=== PATIENT | male | born 1945 | race Two or more races ===

== ENCOUNTER 2016-06-24 10:35 | Emergency (ER) | payer MEDICARE, OTHER ==
--- NOTE | 2016-06-24 12:37 | ED ---
Lower Extremity Injury HPI - General Chief Complaint: Extremity Injury, Lower Stated Complaint: ankle pain Time Seen by Provider: 06/24/16 12:16 Source: patient Mode of arrival: ambulatory Limitations: no limitations - History of Present Illness Initial Comments: Patient is a 70-year-old male presenting with left ankle pain. Patient states Friday he was brushing off his truck when his foot got caught underneath the front tire. Patient slipped and fell catching himself. No head injury or loss of consciousness. Patient had immediate calf pain. She has been ambulatory on his injury. Pain is localized to the left Achilles tendon. Review of Systems ROS Statement: Those systems with pertinent positive or pertinent negative responses have been documented in the HPI. Constitutional: No fever and no chills. HENT: No congestion, no rhinorrhea and no sore throat. Eyes: No discharge and no redness. Respiratory: No cough and no shortness of breath. Cardiovascular: No chest pain and no palpitations. Gastrointestinal: No nausea, no vomiting, no abdominal pain and no diarrhea. Genitourinary: No dysuria and no hematuria. Musculoskeletal: + Ankle pain and swelling Skin: No pallor and no rash. Neurological: No dizziness and No headaches. ROS Other: All systems not noted in ROS Statement are negative. Past Medical History Past Medical History: No Reported History History of Any Multi-Drug Resistant Organisms: None Reported Past Surgical History: No Surgical Hx Reported Past Psychological History: No Psychological Hx Reported Smoking Status: Former smoker Past Alcohol Use History: None Reported Past Drug Use History: None Reported General Exam - General Exam Comments Initial Comments: Constitutional: Patient appears well-developed and well-nourished. No distress. Head: Normocephalic and atraumatic. Eyes: Conjunctivae and EOM are normal. Right eye exhibits no discharge. Left eye exhibits no discharge. No scleral icterus. Neck: Normal range of motion. Neck supple. Cardiovascular: Normal rate and regular rhythm. No murmur heard. Pulmonary/Chest: Effort normal and breath sounds normal. No respiratory distress. No wheezes. Abdominal: Soft. No distension. There is no tenderness. There is no rebound and no guarding. Musculoskeletal: Left ankle with significant bruising and swelling to posterior aspect of ankle. Loss of Achilles tendon landmarks. Positive Cornell's test on the left. Left ankle without tenderness to foot. Stable ankle. No calf tenderness. Distal pulses intact. Distal sensation intact. Motor intact. Neurological: Patient alert and oriented to person, place, and time. Skin: Skin is warm and dry. Not diaphoretic. Nursing notes and vitals reviewed. Limitations: no limitations Course Vital Signs 06/24/16 06/24/16 11:05 12:41 Temperature 97.2 F L 99.3 F Pulse Rate 91 71 Respiratory 20 18 Rate Blood Pressure 155/96 145/68 O2 Sat by Pulse 96 98 Oximetry - Reevaluation(s) Reevaluation #1: 06/24/16 13:23 Splint applied. Patient not requesting anything for pain. Procedures - Orthopedic Splinting/Casting Injury #1 Side: left Lower Extremity Injury Location: ankle Lower Extremity Immobilizer: posterior splint (Short leg with mild plantar flexion) Other Orthopedic Equipment: crutches Medical Decision Making - Medical Decision Making Patient's a 70-year-old male presenting with left ankle pain after injury on Friday. Concern for left Achilles tendon rupture. Patient was put in a mild plantar flexed short leg splint. Given crutches. Patient to follow up with orthopedic surgeon. Prior to discharge, patient was resting comfortably in bed. Course of stay improved. Denies pain. Discussed physical exam and diagnostic tests with patient. Questions answered and patient is agreeable to discharge with close follow up with orthopedic surgeon. Instructed to return to Emergency Department if symptoms worsen. Disposition Clinical Impression: Rupture of left Achilles tendon Disposition: HOME SELF-CARE Condition: Good Instructions: Achilles Tendon Rupture (ED) Referrals: None,Stated [Primary Care Provider] - 1-2 days Dereck Ponce MD [STAFF PHYSICIAN] - 1-2 days
[2016-06-24 12:42] VITALS: BP 145/68; PULSE 71; RESP 18; TEMP 99.3
--- NOTE | 2016-06-24 12:58 | XR ---
EXAMINATION TYPE: XR ankle complete LT DATE OF EXAM: 06/24/2016 12:38 PM CLINICAL HISTORY: Twisting fall injury with pain and swelling. TECHNIQUE: Frontal, lateral and oblique images of the left ankle are obtained. COMPARISON: None. FINDINGS: There is no acute fracture/dislocation evident in the left ankle. The ankle mortise appea rs within normal limits. There is mild to moderate soft tissue swelling over medial and lateral malle agatha. There is small to moderate-sized superior calcaneal spur. Vascular calcification in the soft tis candis is present. Subcutaneous edema fills Kager fat pad. There is prominent spurring from anterior avila perior tarsal navicular bone on lateral view. IMPRESSION: There is no acute fracture or dislocation in the left ankle.
== END 2016-06-24 13:44 | disposition home or self-care (01) ==
LOC: EC 10:35
DX: S86.012A Strain of left Achilles tendon, initial encounter (principal); Z87.891 Personal history of nicotine dependence; W23.0XXA Caught, crushed, jammed, or pinched between moving objects, initial encounter; Y93.89 Activity, other specified
CPT/HCPCS: 29515; 99283

== ENCOUNTER 2017-05-26 09:53 | Emergency (ER) | payer MEDICARE, OTHER ==
[2017-05-26 09:57] VITALS: TEMP 97.4
--- NOTE | 2017-05-26 10:39 | ED ---
Lower Extremity Injury HPI - General Chief Complaint: Extremity Injury, Lower Stated Complaint: knee pain Time Seen by Provider: 05/26/17 10:17 Source: patient, RN notes reviewed Mode of arrival: ambulatory Limitations: no limitations - History of Present Illness Initial Comments: This is a 71-year-old male with a history of a left Achilles tendon rupture in the past and left forearm fracture in the past no prior history of knee surgery or knee problems and he is aware of who states that he woke up this morning with left-sided knee pain. He states it was moderate pain now down to a 5 achy in nature. It got better with some movement. He states when he stands for more and 10 minutes or so he has to sit down because he starts hurting again. He denies any trauma back pain loss of function to the lower extremities. He denies any history of DVT. He states he just generally hurts without any specific spot MD Complaint: knee injury - Related Data Previous Rx's Medication Instructions Recorded Ketorolac [Toradol] 10 mg PO Q6HR #20 tab 05/26/17 Allergies Allergy/AdvReac Type Severity Reaction Status Date / Time ether AdvReac Confusion Verified 05/26/17 10:32 Review of Systems ROS Statement: Those systems with pertinent positive or pertinent negative responses have been documented in the HPI. ROS Other: All systems not noted in ROS Statement are negative. Past Medical History Past Medical History: No Reported History Additional Past Medical History / Comment(s): Left Achilles tendon rupture History of Any Multi-Drug Resistant Organisms: None Reported Past Surgical History: No Surgical Hx Reported Additional Past Surgical History / Comment(s): left forearm compound fracture surgical alignment and casting Past Anesthesia/Blood Transfusion Reactions: Postoperative Nausea & Vomiting ( PONV) Past Psychological History: No Psychological Hx Reported Smoking Status: Former smoker Past Alcohol Use History: None Reported Past Drug Use History: None Reported - Past Family History Mother Family Medical History: Coronary Artery Disease (CAD) Father Family Medical History: No Reported History General Exam - General Exam Comments Initial Comments: This is a well-developed well-nourished awake alert oriented 3 male Limitations: no limitations General appearance: alert, in no apparent distress Head exam: Present: atraumatic, normocephalic, normal inspection Eye exam: Present: normal appearance, PERRL, EOMI. Absent: scleral icterus, conjunctival injection, periorbital swelling ENT exam: Present: normal exam, mucous membranes moist Neck exam: Present: normal inspection. Absent: tenderness, meningismus, lymphadenopathy Respiratory exam: Absent: respiratory distress, wheezes, rales, rhonchi, stridor Cardiovascular Exam: Present: normal rhythm, bradycardia, normal heart sounds. Absent: systolic murmur, diastolic murmur, rubs, gallop, clicks GI/Abdominal exam: Present: normal bowel sounds. Absent: distended, tenderness , guarding, rebound, rigid, bruit, pulsatile mass Extremities exam: Present: normal inspection, full ROM, tenderness (Mild tenderness palpation of the medial and lateral aspects of the knee and over the patella no patellar ballottement. Mild tenderness over the patellar tendon. No evidence of defect. His tennis palpation of the popliteal fossa. Also there is calf tenderness on the left with some firmness compared to the right calf. No palpable cords.), normal capillary refill. Absent: pedal edema, joint swelling, calf tenderness Back exam: Present: normal inspection, full ROM. Absent: tenderness Neurological exam: Present: alert, oriented X3, CN II-XII intact Psychiatric exam: Present: normal affect, normal mood Skin exam: Present: warm, dry, intact, normal color. Absent: rash Course Vital Signs 05/26/17 05/26/17 09:54 11:51 Temperature 97.4 F L Pulse Rate 53 L 75 Respiratory 18 16 Rate Blood Pressure 130/73 118/58 O2 Sat by Pulse 97 98 Oximetry Medical Decision Making - Medical Decision Making I did discuss findings with the patient no acute findings she'll be discharged on appropriate anti-inflammatories is follow-up with his doctor and return when necessary he did likely twisted his knee and his sleep is not recall any trauma. - Radiology Data Radiology results: report reviewed (I did review the imaging and report no evidence of acute findings. Patient was notified), image reviewed Disposition Clinical Impression: Left knee pain Disposition: HOME SELF-CARE Condition: Good Instructions: Knee Pain (ED) Prescriptions: Ketorolac [Toradol] 10 mg PO Q6HR #20 tab Referrals: None,Stated [Primary Care Provider] - 1-2 days
[2017-05-26] MEDS ORDERED: IBUPROFEN 800 MG TAB PO STA (11:26)
--- NOTE | 2017-05-26 11:42 | XR ---
EXAMINATION TYPE: XR knee complete LT DATE OF EXAM: 05/26/2017 COMPARISON: NONE HISTORY: Pain TECHNIQUE: Four views are submitted. FINDINGS: Joint spaces are preserved. Osseous structures are intact. No acute fracture seen. Hypertrophic ch anges are noted. There is diffuse osteopenia. Vascular calcification seen. IMPRESSION: 1. No acute fracture or dislocation.
--- NOTE | 2017-05-26 11:45 | US ---
EXAMINATION TYPE: US venous doppler duplex LE LT DATE OF EXAM: 05/26/2017 11:01 AM COMPARISON: NONE CLINICAL HISTORY: 71-year-old male Pain. Left knee pain SIDE PERFORMED: Left TECHNIQUE: The lower extremity deep venous system is examined utilizing real time linear array sonog raegan with graded compression, doppler sonography and color-flow sonography. FINDINGS: VESSELS IMAGED: External Iliac Vein (EIV) Common Femoral Vein Deep Femoral Vein Greater Saphenous Vein * Femoral Vein Popliteal Vein Small Saphenous Vein * Proximal Calf Veins (* superficial vessels) Left Leg: Negative for DVT IMPRESSION: No evidence for DVT within the left lower extremity imaged from the groin to the upper calf.
[2017-05-26 11:53] VITALS: BP 118/58; PULSE 75; RESP 16
== END 2017-05-26 12:20 | disposition home or self-care (01) ==
LOC: EC 09:53
DX: M25.562 Pain in left knee (principal); R00.1 Bradycardia, unspecified; Z87.891 Personal history of nicotine dependence; Z91.048 Other nonmedicinal substance allergy status
CPT/HCPCS: 99284

== ENCOUNTER → 2020-09-11 | Outpatient (CLI) | payer MEDICARE ==
--- NOTE | 2020-09-11 11:35 | US ---
EXAMINATION TYPE: US prostate transrectal DATE OF EXAM: 09/11/2020 COMPARISON: NONE CLINICAL HISTORY: R97.2 ELEVATED PSA. elevated PSA. urinary urgency This examination was performed using the transrectal probe. EXAM MEASUREMENTS: Gland Size: 5.2 x 4.0 x 5.3cm Volume: 58.1ml Predicted PSA: 6.97 Actual PSA (if available): 4.6 Visualized seminal vesicles within normal limits on initial images saved. Heterogeneous enlarged pros joyner gland with central calcifications. No suspicious hypoechoic nodules. IMPRESSION: Findings consistent with BPH. No suspicious nodules. Predicted PSA = volume x 0.12 ng/ml Calculated Volume = 0.5236 x L x W x H
== END | disposition home or self-care (01) ==
LOC: RADUSWWP 10:25
PROVIDERS: ATTEND Family Medicine
DX: R97.20 Elevated prostate specific antigen [PSA] (principal)
CPT/HCPCS: 76872

== ENCOUNTER 2020-12-08 13:29 | Inpatient (IN) | payer MEDICARE, OTHER ==
--- NOTE | 2020-12-08 14:21 | ED ---
General Adult HPI - General Source: patient, RN notes reviewed, old records reviewed Mode of arrival: EMS Limitations: no limitations <Jacinto Trujillo - Last Filed: 12/08/20 14:26> <Mirna Dotson - Last Filed: 12/09/20 14:16> - General Chief complaint: Weakness Stated complaint: Weakness Time Seen by Provider: 12/08/20 13:55 - History of Present Illness Initial comments: This is a 75-year-old male who presents emergency department because he stating that he has generalized weakness. Patient states some days she's better than others but is slowly been getting worse ever since the patient on started. Patient states he has been unable to get up and get around to [place] because he has been staying in his apartment and he hasn't been getting out for about a year and a half. Patient states he is becoming more off balance and about a week ago he fell he did not hurt anything but he notices that he has to grab onto things much more often because is afraid is in the fall. Patient states the weakness is not focal it's more generalized occasionally he feels one side is weaker than the other but that changes almost daily. Patient denies any recent injury. Patient denies any headache patient denies numbness weakness per patient denies any recent fever chills or cough per patient denies difficulty breathing or shortness of breath per patient denies chest pain. Patient denies any abdominal pain patient denies any nausea vomiting diarrhea. Sister is in the room and she agrees that since the patient and it began and he stayed in his apartment he has become weaker and weaker. (Jacinto Trujillo) - Related Data Home Medications Medication Instructions Recorded Confirmed Ergocalciferol [Vitamin D2 (1250 1,250 mcg PO WE 12/08/20 12/08/20 Mcg = 01379 Iu)] Meloxicam [Mobic] 15 mg PO DAILY 12/08/20 12/08/20 Allergies Allergy/AdvReac Type Severity Reaction Status Date / Time ether AdvReac Confusion Verified 12/08/20 16:51 Review of Systems ROS Other: All systems not noted in ROS Statement are negative. <Jacinto Trujillo - Last Filed: 12/08/20 14:26> ROS Other: All systems not noted in ROS Statement are negative. <Mirna Dotson - Last Filed: 12/09/20 14:16> ROS Statement: Those systems with pertinent positive or pertinent negative responses have been documented in the HPI. Past Medical History Past Medical History: No Reported History Additional Past Medical History / Comment(s): Left Achilles tendon rupture History of Any Multi-Drug Resistant Organisms: None Reported Past Surgical History: No Surgical Hx Reported Additional Past Surgical History / Comment(s): left forearm compound fracture surgical alignment and casting Past Anesthesia/Blood Transfusion Reactions: Postoperative Nausea & Vomiting (PONV) Past Psychological History: No Psychological Hx Reported Past Alcohol Use History: None Reported Past Drug Use History: None Reported - Past Family History Mother Family Medical History: Coronary Artery Disease (CAD) Father Family Medical History: No Reported History <Jacinto Trujillo - Last Filed: 12/08/20 14:26> General Exam Limitations: no limitations <Jacinto Trujillo - Last Filed: 12/08/20 14:26> - General Exam Comments Initial Comments: GENERAL: Patient is well-developed and well-nourished. Patient is nontoxic and well- hydrated and is in no acute distress. ENT: Neck is soft and supple. No significant lymphadenopathy is noted. Oropharynx is clear. Moist mucous membranes. Neck has full range of motion without eliciting any pain. EYES: The sclera were anicteric and conjunctiva were pink and moist. Extraocular movements were intact and pupils were equal round and reactive to light. Eyelids were unremarkable. PULMONARY: Unlabored respirations. Good breath sounds bilaterally. No audible rales rhonchi or wheezing was noted. CARDIOVASCULAR: There is a regular rate and rhythm without any murmurs gallops or rubs. ABDOMEN: Soft and nontender with normal bowel sounds. SKIN: Skin is clear with no lesions or rashes and otherwise unremarkable. NEUROLOGIC: Patient is alert and oriented x3. Cranial nerves II through XII are grossly intact. Motor and sensory are also intact. Normal speech, volume and content. Symmetrical smile. MUSCULOSKELETAL: Normal extremities with adequate strength and full range of motion. No lower extremity swelling or edema. No calf tenderness. LYMPHATICS: No significant lymphadenopathy is noted PSYCHIATRIC: Normal psychiatric evaluation. (Jacinto Trujillo) Course Vital Signs 12/08/20 12/08/20 12/08/20 13:53 13:58 20:17 Temperature 97.6 F 97.9 F Pulse Rate 59 L 64 Pulse Rate [ 60 Bilateral Radial] Respiratory 18 18 Rate Blood Pressure 117/69 109/72 O2 Sat by Pulse 94 L 95 Oximetry Medical Decision Making <Jacinto Trujillo - Last Filed: 12/08/20 14:26> - Lab Data Result diagrams: 12/09/20 06:56 12/09/20 06:56 <Mirna Dotson - Last Filed: 12/09/20 14:16> - Medical Decision Making EKG shows normal sinus rhythm at 62 bpm DC interval is 206 QRS is 66 QT interval 370 QTC is 383. Patient's EKG shows no ST segment elevation or depression. Dr. Dotson will be taking over the care of this patient at 3 PM (Jacinto Trujillo) The patient was signed out to me from Dr. Trujillo. Currently awaiting labs studies and imaging. Laboratory studies are within normal limits. Urinalysis demonstrates 69 white blood cells and small leukocyte esterase. Chest x-ray demonstrates no acute process. I spoke with the patient and the sister at bedside. They feel uncomfortable with the patient going home due to his multiple falls concern for safety. [place] the patient needs rehab. Dr. Gonzalez was paged x 3 for admission. Campaign Manager states that she verified that Dr. 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 Currently awaiting callback. (Mirna Dotson) - Lab Data Lab Results 12/08/20 12/08/20 12/08/20 Range/Units 14:18 14:44 14:44 WBC 10.5 (3.8-10.6) k/uL RBC 4.26 L (4.30-5.90) m/uL Hgb 14.6 (13.0-17.5) gm/dL Hct 40.9 (39.0-53.0) % MCV 95.9 (80.0-100.0) fL MCH 34.3 (25.0-35.0) pg MCHC 35.8 (31.0-37.0) g/dL RDW 13.8 (11.5-15.5) % Plt Count 230 (150-450) k/uL MPV 7.9 Neutrophils % 77 % Lymphocytes % 12 % Monocytes % 8 % Eosinophils % 1 % Basophils % 0 % Neutrophils # 8.1 H (1.3-7.7) k/uL Lymphocytes # 1.3 (1.0-4.8) k/uL Monocytes # 0.8 (0-1.0) k/uL Eosinophils # 0.1 (0-0.7) k/uL Basophils # 0.0 (0-0.2) k/uL PT (9.0-12.0) sec INR (<1.2) APTT (22.0-30.0) sec Sodium (137-145) mmol/L Potassium (3.5-5.1) mmol/L Chloride (98-107) mmol/L Carbon Dioxide (22-30) mmol/L Anion Gap mmol/L BUN (9-20) mg/dL Creatinine (0.66-1.25) mg/dL Est GFR (CKD-EPI)AfAm (>60 ml/min/1.73 sqM) Est GFR (CKD-EPI)NonAf (>60 ml/min/1.73 sqM) Glucose (74-99) mg/dL Plasma Lactic Acid Ascencion (0.7-2.0) mmol/L Calcium (8.4-10.2) mg/dL Magnesium (1.6-2.3) mg/dL Total Bilirubin (0.2-1.3) mg/dL AST (17-59) U/L ALT (4-49) U/L Alkaline Phosphatase (38-126) U/L Troponin I (0.000-0.034) ng/mL Total Protein (6.3-8.2) g/dL Albumin (3.5-5.0) g/dL Urine Color Yellow Urine Appearance Cloudy (Clear) Urine pH 6.0 (5.0-8.0) Ur Specific [place] 1.022 (1.001-1.035) Urine Protein Negative (Negative) Urine Glucose (UA) Negative (Negative) Urine Ketones Trace H (Negative) Urine Blood Negative (Negative) Urine Nitrite Negative (Negative) Urine Bilirubin Negative (Negative) Urine Urobilinogen 12.0 (<2.0) mg/dL Ur Leukocyte Esterase Small H (Negative) Urine RBC 3 (0-5) /hpf Urine WBC 69 H (0-5) /hpf 12/08/20 12/08/20 12/08/20 Range/Units 14:44 14:44 14:44 WBC (3.8-10.6) k/uL RBC (4.30-5.90) m/uL Hgb (13.0-17.5) gm/dL Hct (39.0-53.0) % MCV (80.0-100.0) fL MCH (25.0-35.0) pg MCHC (31.0-37.0) g/dL RDW (11.5-15.5) % Plt Count (150-450) k/uL MPV Neutrophils % % Lymphocytes % % Monocytes % % Eosinophils % % Basophils % % Neutrophils # (1.3-7.7) k/uL Lymphocytes # (1.0-4.8) k/uL Monocytes # (0-1.0) k/uL Eosinophils # (0-0.7) k/uL Basophils # (0-0.2) k/uL PT (9.0-12.0) sec INR (<1.2) APTT (22.0-30.0) sec Sodium 140 (137-145) mmol/L Potassium 4.3 (3.5-5.1) mmol/L Chloride 107 (98-107) mmol/L Carbon Dioxide 25 (22-30) mmol/L Anion Gap 8 mmol/L BUN 24 H (9-20) mg/dL Creatinine 0.79 (0.66-1.25) mg/dL Est GFR (CKD-EPI)AfAm >90 (>60 ml/min/1.73 sqM) Est GFR (CKD-EPI)NonAf 88 (>60 ml/min/1.73 sqM) Glucose 105 H (74-99) mg/dL Plasma Lactic Acid Ascencion 0.8 (0.7-2.0) mmol/L Calcium 9.7 (8.4-10.2) mg/dL Magnesium 2.3 (1.6-2.3) mg/dL Total Bilirubin 0.9 (0.2-1.3) mg/dL AST 19 (17-59) U/L ALT 17 (4-49) U/L Alkaline Phosphatase 70 (38-126) U/L Troponin I <0.012 (0.000-0.034) ng/mL Total Protein 6.9 (6.3-8.2) g/dL Albumin 4.1 (3.5-5.0) g/dL Urine Color Urine Appearance (Clear) Urine pH (5.0-8.0) Ur Specific [place] (1.001-1.035) Urine Protein (Negative) Urine Glucose (UA) (Negative) Urine Ketones (Negative) Urine Blood (Negative) Urine Nitrite (Negative) Urine Bilirubin (Negative) Urine Urobilinogen (<2.0) mg/dL Ur Leukocyte Esterase (Negative) Urine RBC (0-5) /hpf Urine WBC (0-5) /hpf 12/08/20 Range/Units 15:40 WBC (3.8-10.6) k/uL RBC (4.30-5.90) m/uL Hgb (13.0-17.5) gm/dL Hct (39.0-53.0) % MCV (80.0-100.0) fL MCH (25.0-35.0) pg MCHC (31.0-37.0) g/dL RDW (11.5-15.5) % Plt Count (150-450) k/uL MPV Neutrophils % % Lymphocytes % % Monocytes % % Eosinophils % % Basophils % % Neutrophils # (1.3-7.7) k/uL Lymphocytes # (1.0-4.8) k/uL Monocytes # (0-1.0) k/uL Eosinophils # (0-0.7) k/uL Basophils # (0-0.2) k/uL PT 10.0 (9.0-12.0) sec INR 0.9 (<1.2) APTT 20.2 L (22.0-30.0) sec Sodium (137-145) mmol/L Potassium (3.5-5.1) mmol/L Chloride (98-107) mmol/L Carbon Dioxide (22-30) mmol/L Anion Gap mmol/L BUN (9-20) mg/dL Creatinine (0.66-1.25) mg/dL Est GFR (CKD-EPI)AfAm (>60 ml/min/1.73 sqM) Est GFR (CKD-EPI)NonAf (>60 ml/min/1.73 sqM) Glucose (74-99) mg/dL Plasma Lactic Acid Ascencion (0.7-2.0) mmol/L Calcium (8.4-10.2) mg/dL Magnesium (1.6-2.3) mg/dL Total Bilirubin (0.2-1.3) mg/dL AST (17-59) U/L ALT (4-49) U/L Alkaline Phosphatase (38-126) U/L Troponin I (0.000-0.034) ng/mL Total Protein (6.3-8.2) g/dL Albumin (3.5-5.0) g/dL Urine Color Urine Appearance (Clear) Urine pH (5.0-8.0) Ur Specific [place] (1.001-1.035) Urine Protein (Negative) Urine Glucose (UA) (Negative) Urine Ketones (Negative) Urine Blood (Negative) Urine Nitrite (Negative) Urine Bilirubin (Negative) Urine Urobilinogen (<2.0) mg/dL Ur Leukocyte Esterase (Negative) Urine RBC (0-5) /hpf Urine WBC (0-5) /hpf Disposition <Jacinto Trujillo - Last Filed: 12/08/20 14:26> Is patient prescribed a controlled substance at d/c from ED?: No Decision to Admit Reason: Admit from EC Decision Date: 12/08/20 Decision Time: 17:25 <Mirna Dotson - Last Filed: 12/09/20 14:16> Clinical Impression: Generalized weakness, Multiple falls Disposition: ADMITTED IP TO THIS [facility] Condition: Stable
[2020-12-08 15:16] LABS: ALT 17 U/L (4-49); AST 19 U/L (17-59); African American GFR (CKD) >90 (>60 ml/min/1.73 sqM); Albumin 4.1 g/dL (3.5-5.0); Alkaline Phosphatase 70 U/L (38-126); Anion Gap 8 mmol/L; Blood Urea Nitrogen 24 mg/dL (9-20); Calcium 9.7 mg/dL (8.4-10.2); Carbon Dioxide 25 mmol/L (22-30); Chloride 107 mmol/L (98-107); Glucose 105 mg/dL (74-99); Magnesium 2.3 mg/dL (1.6-2.3); Non-African American GFR(CKD) 88 (>60 ml/min/1.73 sqM); Potassium 4.3 mmol/L (3.5-5.1); Sodium 140 mmol/L (137-145); Total Bilirubin 0.9 mg/dL (0.2-1.3); Total Protein 6.9 g/dL (6.3-8.2)
[2020-12-08 15:46] LABS: Basophils % (A) 0 %; Eosinophils # (A) 0.1 k/uL (0-0.7); Eosinophils % (A) 1 %; HCT 40.9 % (39.0-53.0); HGB 14.6 gm/dL (13.0-17.5); Lymphocytes # (A) 1.3 k/uL (1.0-4.8); Lymphocytes % (A) 12 %; MCH 34.3 pg (25.0-35.0); MCHC 35.8 g/dL (31.0-37.0); MCV 95.9 fL (80.0-100.0); Mean Platelet Volume 7.9; Monocytes # (A) 0.8 k/uL (0-1.0); Monocytes % (A) 8 %; Neutrophils # (A) 8.1 k/uL (1.3-7.7); Neutrophils % (A) 77 %; Platelet Count 230 k/uL (150-450); RBC 4.26 m/uL (4.30-5.90); RDW 13.8 % (11.5-15.5); WBC 10.5 k/uL (3.8-10.6)
[2020-12-08 16:07] LABS: Appearance,Urine Cloudy (Clear); Bilirubin,Urine Negative (Negative); Blood,Urine Negative (Negative); Color,Urine Yellow; Glucose,Urine (UA) Negative (Negative); Ketones,Urine Trace (Negative); Leukocyte Esterase,Urine Small (Negative); Nitrite,Urine Negative (Negative); Protein,Urine Negative (Negative); RBC,Urine 3 /hpf (0-5); Specific Gravity,Urine 1.022 (1.001-1.035); WBC,Urine 69 /hpf (0-5)
--- NOTE | 2020-12-08 16:16 | XR ---
EXAMINATION TYPE: XR chest 2V DATE OF EXAM: 12/08/2020 COMPARISON: NONE HISTORY: Shortness of breath TECHNIQUE: Frontal and lateral views of the chest are obtained. FINDINGS: Scattered senescent parenchymal changes noted. Hyperinflation compatible with COPD. No evidence for infiltrate. No evidence for atelectasis. Heart size is stable. Mediastinal structures are stable and grossly unremarkable. No evidence for hilar prominence. Degenerative changes dorsal spine. IMPRESSION: 1. No evidence for acute pulmonary disease.
[2020-12-08 16:21] LABS: INR 0.9 (<1.2)
[2020-12-08 16:33] LABS: Partial Thromboplastin Time 20.2 sec (22.0-30.0)
[2020-12-08] MEDS ORDERED: NALOXONE 0.4 MG/ML 1 ML VIAL IV PRN (17:25)
[2020-12-08] MEDS: SODIUM CHLORIDE 0.9% 1,000 ML IV SCH (19:38)
[2020-12-09 07:36] LABS: Basophils % (A) 0 %; Eosinophils # (A) 0.1 k/uL (0-0.7); Eosinophils % (A) 1 %; HCT 39.9 % (39.0-53.0); HGB 13.3 gm/dL (13.0-17.5); Lymphocytes # (A) 1.2 k/uL (1.0-4.8); Lymphocytes % (A) 13 %; MCH 32.1 pg (25.0-35.0); MCHC 33.3 g/dL (31.0-37.0); MCV 96.6 fL (80.0-100.0); Mean Platelet Volume 7.1; Monocytes # (A) 0.5 k/uL (0-1.0); Monocytes % (A) 6 %; Neutrophils # (A) 7.2 k/uL (1.3-7.7); Neutrophils % (A) 78 %; Platelet Count 255 k/uL (150-450); RBC 4.13 m/uL (4.30-5.90); RDW 13.5 % (11.5-15.5); WBC 9.3 k/uL (3.8-10.6)
[2020-12-09 07:38] LABS: Glucose,Whole Blood 147 mg/dL (75-99)
[2020-12-09] MEDS: SODIUM CHLORIDE 0.9% 1,000 ML IV SCH ×2 (07:46→20:51)
[2020-12-09] MEDS: MELOXICAM 7.5 MG TAB PO SCH (07:47)
[2020-12-09 11:30] LABS: Glucose,Whole Blood 83 mg/dL (75-99)
[2020-12-09 12:04] LABS: African American GFR (CKD) 101.3 (60.0-200.0); Anion Gap 4.2 mmol/L (4.00-12.00); BUN/Creat Ratio 23.75 Ratio (12.00-20.00); Carbon Dioxide 26.8 mmol/L (21.6-31.8); Non-African American GFR(CKD) 87.4 (60.0-200.0); Potassium 4.2 mmol/L (3.5-5.5)
[2020-12-09] MEDS ORDERED: TAMSULOSIN 0.4 MG CAP.ER.24H PO SCH (18:30)
--- NOTE | 2020-12-09 18:32 | P.HPIM ---
History of Present Illness H&P Date: 12/09/20 Chief Complaint: Difficulty ambulating, falls or weakness bilateral legs with imbalance Is a 75-year-old gentleman patient of Dr. Magaña, with no significant medical history, except for BPH. Patient has complained of falls, patient lives alone, patient has difficulty in his balance, he has fallen down 3 times within the past 6 months, he was not diagnosed to have Parkinson's disease, or dementia, however he has difficulty with performing tasks at home, requires a walker for community ambulation. Patient has had chronic back pain ever since he was a child, there was no surgical recommendation for this one, and patient is suffered through it. Patient is not on any opiates prior to admission, Emergency room, labs look okay except for chloride that is 110 INR 0.9, blood sugar between 83-147, hemoglobin 13.3, creatinine of 0.8, urinalysis shows 69 WBC, the emergency room has not notified me of these reports. In the nursing floor, patient has urinary retention of approximately 400, Flomax was started today. Repeat PVR and renal ultrasound. Patient has urgency, and urine frequency. PT OT has been consulted, we've discussed this with the patient for imaging of the low back for an MRI, to rule out spinal stenosis, patient is in agreement for this Review of Systems Constitutional: Reports as per HPI, Denies anorexia, Denies chills, Denies chronic headaches, Denies chronic pain, Denies daytime sleepiness, Denies fatigue, Denies fever, Denies lethargy, Denies malaise, Denies night sweats, Denies poor appetite, Denies sweats, Denies weakness, Denies weight gain, Denies weight loss Ears, nose, mouth and throat: Reports as per HPI Cardiovascular: Reports as per HPI Respiratory: Reports as per HPI Gastrointestinal: Reports as per HPI Genitourinary: Reports as per HPI, Denies decreased libido, Denies difficulties fathering child, Denies discharge, Denies dysuria, Denies erectile dysfunction, Denies flank pain, Denies genital pain, Denies genital sores, Denies hematuria, Denies impotence, Denies incontinence, Denies kidney stones, Denies nocturia, Denies polyuria, Denies testicular lump, Denies testicular pain, Denies urinary frequency, Denies urinary hesitancy, Denies urinary retention Musculoskeletal: Reports as per HPI, Reports gait dysfunction, Reports limitation of motion, Reports low back pain Neurological: Reports as per HPI, Reports motor disturbance, Reports paresthesias Psychiatric: Reports as per HPI Endocrine: Reports as per HPI Hematologic/Lymphatic: Reports as per HPI Allergic/Immunologic: Reports as per HPI Past Medical History Past Medical History: Prostate Disorder Additional Past Medical History / Comment(s): Left Achilles tendon rupture 6-7 years ago. bph History of Any Multi-Drug Resistant Organisms: None Reported Past Surgical History: Hernia Repair, Tonsillectomy Additional Past Surgical History / Comment(s): left forearm compound fracture surgical alignment and casting Past Anesthesia/Blood Transfusion Reactions: Postoperative Nausea & Vomiting (PONV) Past Psychological History: No Psychological Hx Reported Smoking Status: Former smoker Past Alcohol Use History: None Reported Past Drug Use History: None Reported - Past Family History Mother Family Medical History: No Reported History, Coronary Artery Disease (CAD) Father Family Medical History: No Reported History Medications and Allergies Home Medications Medication Instructions Recorded Confirmed Type Ergocalciferol [Vitamin D2 (1250 1,250 mcg PO WE 12/08/20 12/08/20 History Mcg = 34168 Iu)] Meloxicam [Mobic] 15 mg PO DAILY 12/08/20 12/08/20 History Allergies Allergy/AdvReac Type Severity Reaction Status Date / Time ether AdvReac Confusion Verified 12/08/20 16:51 Physical Exam Vitals: Vital Signs Temp Pulse Pulse Pulse Resp BP BP 12/09/20 04:35 97.4 F L 59 L 20 115/66 12/08/20 21:45 97.5 F L 65 20 101/61 12/08/20 20:17 97.9 F 64 18 109/72 12/08/20 13:58 60 12/08/20 13:53 97.6 F 59 L 18 117/69 Pulse Ox 12/09/20 04:35 95 12/08/20 21:45 96 12/08/20 20:17 95 12/08/20 13:58 12/08/20 13:53 94 L Intake and Output 12/08/20 12/09/20 12/09/20 22:59 06:59 14:59 Intake Total 200 Output Total 750 Balance -550 Intake: Oral 200 Output: Urine 750 Straight 550 Other: Voiding Method Urinal # Voids 5 Weight 90.5 kg - Constitutional General appearance: cooperative, morbidly obese - EENT Eyes: EOMI, PERRLA, dentition normal, normal appearance ENT: NA/AT, normal oropharynx - Neck Neck: normal ROM - Respiratory Respiratory: bilateral: CTA, negative: diminished, dullness - Cardiovascular Rhythm: regular Heart sounds: normal: S1, S2 Abnormal Heart Sounds: no systolic murmur, no diastolic murmur, no rub, no S3 Gallop, no S4 Gallop, no click, no other - Gastrointestinal General gastrointestinal: normal bowel sounds, soft - Integumentary Integumentary: decreased turgor, normal - Neurologic Neurologic: CNII-XII intact - Musculoskeletal Musculoskeletal: generalized weakness, strength equal bilaterally - Psychiatric Psychiatric: A&O x's 3, appropriate affect, intact judgment & insight Results CBC & Chem 7: 12/09/20 06:56 12/09/20 06:56 Labs: Abnormal Lab Results - Last 24 Hours (Table) 12/08/20 12/08/20 12/08/20 Range/Units 14:18 14:44 14:44 RBC 4.26 L (4.30-5.90) m/uL Neutrophils # 8.1 H (1.3-7.7) k/uL APTT (22.0-30.0) sec BUN 24 H (9-20) mg/dL Glucose 105 H (74-99) mg/dL POC Glucose (mg/dL) (75-99) mg/dL Urine Ketones Trace H (Negative) Ur Leukocyte Esterase Small H (Negative) Urine WBC 69 H (0-5) /hpf 12/08/20 12/09/20 12/09/20 Range/Units 15:40 06:56 07:29 RBC 4.13 L (4.30-5.90) m/uL Neutrophils # (1.3-7.7) k/uL APTT 20.2 L (22.0-30.0) sec BUN (9-20) mg/dL Glucose (74-99) mg/dL POC Glucose (mg/dL) 147 H (75-99) mg/dL Urine Ketones (Negative) Ur Leukocyte Esterase (Negative) Urine WBC (0-5) /hpf Microbiology - Last 24 Hours (Table) 12/08/20 14:18 Urine Culture - Preliminary Urine,Voided Laboratory Results WBC 9.3 k/uL (3.8-10.6) 12/09/20 06:56 RBC 4.13 m/uL (4.30-5.90) L 12/09/20 06:56 Hgb 13.3 gm/dL (13.0-17.5) 12/09/20 06:56 Hct 39.9 % (39.0-53.0) 12/09/20 06:56 MCV 96.6 fL (80.0-100.0) 12/09/20 06:56 MCH 32.1 pg (25.0-35.0) 12/09/20 06:56 MCHC 33.3 g/dL (31.0-37.0) 12/09/20 06:56 RDW 13.5 % (11.5-15.5) 12/09/20 06:56 Plt Count 255 k/uL (150-450) 12/09/20 06:56 MPV 7.1 12/09/20 06:56 Neutrophils % 78 % 12/09/20 06:56 Lymphocytes % 13 % 12/09/20 06:56 Monocytes % 6 % 12/09/20 06:56 Eosinophils % 1 % 12/09/20 06:56 Basophils % 0 % 12/09/20 06:56 Neutrophils # 7.2 k/uL (1.3-7.7) 12/09/20 06:56 Lymphocytes # 1.2 k/uL (1.0-4.8) 12/09/20 06:56 Monocytes # 0.5 k/uL (0-1.0) 12/09/20 06:56 Eosinophils # 0.1 k/uL (0-0.7) 12/09/20 06:56 Basophils # 0.0 k/uL (0-0.2) 12/09/20 06:56 PT 10.0 sec (9.0-12.0) 12/08/20 15:40 INR 0.9 (<1.2) 12/08/20 15:40 APTT 20.2 sec (22.0-30.0) L 12/08/20 15:40 Sodium 141 mmol/L (135-145) 12/09/20 06:56 Potassium 4.2 mmol/L (3.5-5.5) 12/09/20 06:56 Chloride 110 mmol/L (96-109) H 12/09/20 06:56 Carbon Dioxide 26.8 mmol/L (21.6-31.8) 12/09/20 06:56 Anion Gap 4.20 mmol/L (4.00-12.00) 12/09/20 06:56 BUN 19.0 mg/dL (9.0-27.0) 12/09/20 06:56 Creatinine 0.8 mg/dL (0.6-1.5) 12/09/20 06:56 Est GFR (CKD-EPI)AfAm 101.3 (60.0-200.0) 12/09/20 06:56 Est GFR (CKD-EPI)NonAf 87.4 (60.0-200.0) 12/09/20 06:56 BUN/Creatinine Ratio 23.75 Ratio (12.00-20.00) H 12/09/20 06:56 Glucose 88 mg/dL (70-110) 12/09/20 06:56 POC Glucose (mg/dL) 83 mg/dL (75-99) 12/09/20 11:19 POC Glu Auto Transmission Specialist ID Layla Mcelroy 12/09/20 11:19 Plasma Lactic Acid Ascencion 0.8 mmol/L (0.7-2.0) 12/08/20 14:44 Calcium 9.0 mg/dL (8.7-10.3) 12/09/20 06:56 Magnesium 2.3 mg/dL (1.6-2.3) 12/08/20 14:44 Total Bilirubin 0.9 mg/dL (0.2-1.3) 12/08/20 14:44 AST 19 U/L (17-59) 12/08/20 14:44 ALT 17 U/L (4-49) 12/08/20 14:44 Alkaline Phosphatase 70 U/L (38-126) 12/08/20 14:44 Troponin I <0.012 ng/mL (0.000-0.034) 12/08/20 14:44 Total Protein 6.9 g/dL (6.3-8.2) 12/08/20 14:44 Albumin 4.1 g/dL (3.5-5.0) 12/08/20 14:44 Urine Color Yellow 12/08/20 14:18 Urine Appearance Cloudy (Clear) 12/08/20 14:18 Urine pH 6.0 (5.0-8.0) 12/08/20 14:18 Ur Specific [place] 1.022 (1.001-1.035) 12/08/20 14:18 Urine Protein Negative (Negative) 12/08/20 14:18 Urine Glucose (UA) Negative (Negative) 12/08/20 14:18 Urine Ketones Trace (Negative) H 12/08/20 14:18 Urine Blood Negative (Negative) 12/08/20 14:18 Urine Nitrite Negative (Negative) 12/08/20 14:18 Urine Bilirubin Negative (Negative) 12/08/20 14:18 Urine Urobilinogen 12.0 mg/dL (<2.0) 12/08/20 14:18 Ur Leukocyte Esterase Small (Negative) H 12/08/20 14:18 Urine RBC 3 /hpf (0-5) 12/08/20 14:18 Urine WBC 69 /hpf (0-5) H 12/08/20 14:18 Thrombosis Risk Factor Assmnt - Choose All That Apply Any of the Below Risk Factors Present?: Yes Each Factor Represents 1 point: Obesity (BMI >25), Swollen legs (current) Other Risk Factors: Yes Each Risk Factor Represents 3 Points: Age 75 years or older Other congenital or acquired thrombophilia - If yes, enter type in comment: No Thrombosis Risk Factor Assessment Total Risk Factor Score: 5 Thrombosis Risk Factor Assessment Level: High Risk Assessment and Plan Plan: 1. Recurrent falls, with impaired balance and gait, suspect spinal stenosis, with chronic back pain. PT OT, with consultation for social work for subacute rehabilitation no previous diagnosis of Parkinson's disease or normal pressure hydrocephalus . 2. Acute urinary tract infection, started with Rocephin, with cultures that are pending 3. Urinary retention with BPH, L UTS, PVR is elevated at 400, to straight cath performed, start Flomax 0.4 mg daily 4. Debility, with fracture risk check B12, and TSH check for CPK for rhabdomyolysis 5. GI prophylaxis Pepcid oral 6 DVT prophylaxis Lovenox 40 mg daily
[2020-12-10] MEDS: SODIUM CHLORIDE 0.9% 1,000 ML IV SCH (06:13)
[2020-12-10] MEDS: MELOXICAM 7.5 MG TAB PO SCH (06:53)
--- NOTE | 2020-12-10 11:49 | MR ---
EXAMINATION TYPE: MR lumbar spine wo con DATE OF EXAM: 12/10/2020 COMPARISON: None HISTORY: Generalized weakness, multiple falls, spinal stenosis TECHNIQUE: Multiplanar, multisequence images of the lumbar spine were acquired without IV contrast. FINDINGS: Normal bone marrow signal. Hemangioma of the L4 vertebral body. Vertebral body heights are maintained . Schmorl's node in the superior endplate of L3. L1-L2: Disc desiccation and height loss. No significant canal or neuroforaminal stenosis.. L2-L3: Disc desiccation and height loss. Mild circumferential disc bulge. Mild buckling of the ligame ntum flavum. No significant canal or left neural foraminal stenosis. Mild right neuroforaminal stenosis. L3-L4: Disc desiccation and height loss. Mild disc bulge at joint arthropathy and ligamentum flavum b uckling causes mild canal stenosis and left neural foraminal stenosis. No significant right neural fo raminal stenosis. L4-L5: Broad-based disc bulge eccentric to the right greater than left facet joint arthropathy and li gamentum flavum thickening causes mild canal stenosis and severe right and moderate left neuroforamin al stenosis. L5-S1: There is circumferential disc bulge centered to the left and facet joint arthropathy without s ignificant canal stenosis. Moderate bilateral neuroforaminal stenosis. Lumbar segments are intact. No paraspinal masses are identified. Conus medullaris has a normal appe arance and is located at L1-2. IMPRESSION: Degenerative changes as described most severe at L4-L5. There is mild canal stenosis and severe right and moderate left neuroforaminal stenosis.
--- NOTE | 2020-12-10 13:56 | P.PN ---
Subjective Progress Note Date: 12/10/20 Chief Complaint: Difficulty ambulating, falls or weakness bilateral legs with imbalance Is a 75-year-old gentleman patient of Dr. Magaña, with no significant medical history, except for BPH. Patient has complained of falls, patient lives alone, patient has difficulty in his balance, he has fallen down 3 times within the past 6 months, he was not diagnosed to have Parkinson's disease, or dementia, however he has difficulty with performing tasks at home, requires a walker for community ambulation. Patient has had chronic back pain ever since he was a child, there was no surgical recommendation for this one, and patient is suffered through it. Patient is not on any opiates prior to admission, Emergency room, labs look okay except for chloride that is 110 INR 0.9, blood sugar between 83-147, hemoglobin 13.3, creatinine of 0.8, urinalysis shows 69 WBC, the emergency room has not notified me of these reports. In the nursing floor, patient has urinary retention of approximately 400, Flomax was started today. Repeat PVR and renal ultrasound. Patient has urgency, and urine frequency. PT OT has been consulted, we've discussed this with the patient for imaging of the low back for an MRI, to rule out spinal stenosis, patient is in agreement for this 12/10 patient had problems with his Collins catheter last night, it has to be reinserted, however patient pulled off before catheter accidentally, there is blood in his penis, and he seems to be distended today, we'll going to increase Flomax to 0.4 mg twice a day, consult urology, collins catheterneed to be inserted pvr was over 400 mL, abdomen seems to be distended today eyes show spinal stenosis, L4-L5, with moderate on the left, severe on the right L4-L5, has some radiculopathy to the right knee, however primary show arthritis of the right hip and knee is not ruled out consultt with Dr. Tristan, for spinal stenosis culture currently is pending, on IV antibiotics Review of Systems Constitutional: Reports as per HPI, Denies anorexia, Denies chills, Denies chronic headaches, Denies chronic pain, Denies daytime sleepiness, Denies fatigue, Denies fever, Denies lethargy, Denies malaise, Denies night sweats, Denies poor appetite, Denies sweats, Denies weakness, Denies weight gain, Denies weight loss Ears, nose, mouth and throat: Reports as per HPI Cardiovascular: Reports as per HPI Respiratory: Reports as per HPI Gastrointestinal: Reports as per HPI Genitourinary: Reports as per HPI, Denies decreased libido, Denies difficulties fathering child, Denies discharge, Denies dysuria, Denies erectile dysfunction, Denies flank pain, Denies genital pain, Denies genital sores, Denies hematuria, Denies impotence, Denies incontinence, Denies kidney stones, Denies nocturia, Denies polyuria, Denies testicular lump, Denies testicular pain, Denies urinary frequency, Denies urinary hesitancy, Denies urinary retention Musculoskeletal: Reports as per HPI, Reports gait dysfunction, Reports limitation of motion, Reports low back pain Neurological: Reports as per HPI, Reports motor disturbance, Reports paresthesias Psychiatric: Reports as per HPI Endocrine: Reports as per HPI Hematologic/Lymphatic: Reports as per HPI Allergic/Immunologic: Reports as per HPI Objective - Vital Signs Vital signs: Vital Signs Temp 97.9 F 12/10/20 13:00 Pulse 71 12/10/20 13:00 Resp 17 12/10/20 13:00 BP 108/65 12/10/20 13:00 Pulse Ox 97 12/10/20 13:00 Intake & Output 12/09/20 12/10/20 12/10/20 18:59 06:59 18:59 Intake Total 300 240 Output Total 1350 1400 1300 Balance -1350 -1100 -1060 Intake: Oral 300 240 Output: Urine 1350 1400 1300 Straight 450 600 Uretheral (Collins) 1300 Other: Voiding Method Urinal Urinal Urinal # Voids 1 8 - Constitutional General appearance: Present: cooperative, no acute distress - EENT Eyes: Present: EOMI, PERRLA, dentition normal, normal appearance ENT: Present: NA/AT, normal oropharynx - Neck Neck: Present: normal ROM - Respiratory Respiratory: bilateral: CTA, negative: diminished, dullness - Cardiovascular Rhythm: regular Heart sounds: normal: S1, S2 Abnormal Heart Sounds: Absent: systolic murmur, diastolic murmur, rub, S3 Gallop, S4 Gallop, click, other - Gastrointestinal General gastrointestinal: Present: normal bowel sounds, soft - Genitourinary Genitourinary Comment(s): no Penile edema, however denies clots and blood, dripping from the penis. - Neurologic Neurologic: Present: CNII-XII intact - Musculoskeletal Musculoskeletal: Present: strength equal bilaterally - Psychiatric Psychiatric: Present: A&O x's 3 - Labs CBC & Chem 7: 12/09/20 06:56 12/09/20 06:56 Labs: Microbiology - Last 24 Hours (Table) 12/08/20 14:18 Urine Culture - Final Urine,Voided Assessment and Plan Plan: 1. Recurrent falls, with impaired balance and gait, suspect spinal stenosis, with chronic back pain. PT OT, with consultation for social work for subacute rehabilitation no previous diagnosis of Parkinson's disease or normal pressure hydrocephalus . 2. Acute urinary tract infection, started with Rocephin, with cultures that are pending 3. Urinary retention with BPH, L UTS, PVR is elevated at 400, to straight cath performed, start Flomax 0.4 mg daily 4. Traumatic Collins catheter, accidentally removed by the patient, secondary to confusion. Has gross hematuria, consult with urology, Collins catheter needs to be reinserted 4. Debility, with fracture risk check B12, and TSH check for CPK for rhabdomyolysis 5. GI prophylaxis Pepcid oral 6 DVT prophylaxis Lovenox 40 mg daily
[2020-12-10] MEDS: FAMOTIDINE 20 MG TAB PO SCH ×2 (14:15→21:38)
[2020-12-10] MEDS: TAMSULOSIN 0.4 MG CAP.ER.24H PO SCH (21:38)
[2020-12-10] MEDS: MELATONIN 3 MG TABLET PO SCH (21:38)
[2020-12-11] MEDS: TAMSULOSIN 0.4 MG CAP.ER.24H PO SCH ×2 (07:02→20:37)
[2020-12-11] MEDS: MELOXICAM 7.5 MG TAB PO SCH (07:02)
[2020-12-11] MEDS: FAMOTIDINE 20 MG TAB PO SCH ×2 (07:02→20:38)
--- NOTE | 2020-12-11 11:14 | P.CNOR ---
History of Present Illness - [facility] Consult date: 12/11/20 History of present illness: This patient is a 75-year-old male with no significant medical history that presented to [facility] emergency department on 12/10/20 with complaints of generalized weakness, falls, chronic low back pain, and right lower extremity pain. Patient was admitted under the care of internal medicine for possible rehab placement, with a consult placed to orthopedics for chronic low back pain and right lower extremity pain. Patient is seen and examined bedside. Patient states he has been experiencing low back pain for at least 6 months. He states there is no injury or trauma when the pain started. He states the pain began as a dull ache, and has progressed over the past 6 months. He also notes pain that begins in his low back, radiates into his hip, and down the right lower extremity. He states his pain has been ongoing for months. He states his experienced a few falls over the past few months. He has not been evaluated for his back or right lower extremity pain. He denies significant pain in the right hip or knee with ambulation. He has been taking Motrin at home for symptoms. Patient is a community ambulator, he ambulates with a walker at baseline. He denies chest pain, shortness of breath, nausea, vomiting, fevers, chills. He denies bowel or bladder incontinence. Vital signs stable. Past Medical History Past Medical History: Prostate Disorder Additional Past Medical History / Comment(s): Left Achilles tendon rupture 6-7 years ago. bph History of Any Multi-Drug Resistant Organisms: None Reported Past Surgical History: Hernia Repair, Tonsillectomy Additional Past Surgical History / Comment(s): left forearm compound fracture surgical alignment and casting Past Anesthesia/Blood Transfusion Reactions: Postoperative Nausea & Vomiting (PONV) Past Psychological History: No Psychological Hx Reported Smoking Status: Former smoker Past Alcohol Use History: None Reported Past Drug Use History: None Reported - Past Family History Mother Family Medical History: No Reported History, Coronary Artery Disease (CAD) Father Family Medical History: No Reported History Medications and Allergies Home Medications Medication Instructions Recorded Confirmed Type Ergocalciferol [Vitamin D2 (1250 1,250 mcg PO WE 12/08/20 12/08/20 History Mcg = 27937 Iu)] Meloxicam [Mobic] 15 mg PO DAILY 12/08/20 12/08/20 History Allergies Allergy/AdvReac Type Severity Reaction Status Date / Time ether AdvReac Confusion Verified 12/08/20 16:51 Physical Examination On examination, patient is sitting up in the bedside chair in no apparent distress. He is alert and oriented 3. His head appears normocephalic and atraumatic. His breathing appears nonlabored. His bilateral upper extremities reveal no signs of trauma or deformity. On inspection of his bilateral lower extremities, there are no obvious deformities or signs of trauma. No pain on palpation of the right hip, thigh, knee, lower leg, ankle. No pain with passive range of motion of the right hip, knee. Patient has good strength, [id number] of the right ankle. Dorsiflexion, plantarflexion, EHL intact. Motor and sensory intact of the right lower extremity. Right lower extremity is warm and well-perfused with brisk capillary refill distally. Calves are soft and non-tender to palpation bilaterally. On inspection of the low back, there are no lacerations, abrasions, ecchymosis, erythema. No signs of trauma. No purulence, fluctuance, no signs of infection. There is mild discomfort on palpation of the lumbar spine. Results MRI lumbar spine 12/10/20: Degenerative changes L4-5. There is mild canal stenosis and severe right and moderate left neural foraminal stenosis. - Labs Labs: H & H 12/08/20 12/09/20 Range/Units 14:44 06:56 Hgb 14.6 13.3 (13.0-17.5) gm/dL Hct 40.9 39.9 (39.0-53.0) % Coagulation 12/08/20 12/08/20 Range/Units 14:44 15:40 INR 0.9 (<1.2) Result Diagrams: 12/09/20 06:56 12/09/20 06:56 Assessment and Plan Assessment: Low back pain Right lower extremity radiculopathy Spinal stenosis Degenerative changes lumbar spine Right hip pain Plan: - Patient was discussed with Dr. Tristan. We will begin with conservative treatment at this time. We will begin Solumedrol 60mg q12 hours. - Recommend consult with pain management for possible epidural steroid injection. - Will obtain right hip radiographs to rule-out pathology. - Physical therapy for gait training and mobilization. - Medical management per internal medicine. - We will follow patient closely and make recommendations as needed.
--- NOTE | 2020-12-11 12:07 | P.GSCN ---
History of Present Illness Consult date: 12/11/20 Reason for Consult: Urinary retention Requesting physician: Giselle Marcos History of present illness: The patient is a 75-year-old white male admitted with impaired balance and gait, chronic back pain, and recurrent falls. He denies any prior history of UTIs or urolithiasis. He has never been treated for BPH, though he underwent a prostate ultrasound approximately one month ago at [facility]. As a bas mi, he states that his urinary stream is good. He denies intermittency and straining, but does double void. He denies dysuria, hematuria, and urinary incontinence. He reports nocturia 1. At the time of admission, he was found to have a postvoid residual of 400 mL. He was initially managed with straight catheterization, but ultimately an indwelling Centeno catheter was placed. This was traumatically removed yesterday, but replaced. The catheter is currently draining clear yellow urine. Review of Systems - Constitutional Reports weakness - Genitourinary Reports as per HPI - Musculoskeletal Reports gait dysfunction, Reports low back pain, Reports muscle weakness Past Medical History Past Medical History: Prostate Disorder Additional Past Medical History / Comment(s): Left Achilles tendon rupture 6-7 years ago. bph History of Any Multi-Drug Resistant Organisms: None Reported Past Surgical History: Hernia Repair, Tonsillectomy Additional Past Surgical History / Comment(s): left forearm compound fracture surgical alignment and casting Past Anesthesia/Blood Transfusion Reactions: Postoperative Nausea & Vomiting (PONV) Past Psychological History: No Psychological Hx Reported Smoking Status: Former smoker Past Alcohol Use History: None Reported Past Drug Use History: None Reported - Past Family History Mother Family Medical History: No Reported History, Coronary Artery Disease (CAD) Father Family Medical History: No Reported History Medications and Allergies Home Medications Medication Instructions Recorded Confirmed Type Ergocalciferol [Vitamin D2 (1250 1,250 mcg PO WE 12/08/20 12/08/20 History Mcg = 33910 Iu)] Meloxicam [Mobic] 15 mg PO DAILY 12/08/20 12/08/20 History Allergies Allergy/AdvReac Type Severity Reaction Status Date / Time ether AdvReac Confusion Verified 12/08/20 16:51 Surgical - Exam Vital Signs Temp Pulse Resp BP Pulse Ox 97.6 F 59 L 18 117/69 94 L 12/08/20 13:53 12/08/20 13:53 12/08/20 13:53 12/08/20 13:53 12/08/20 13:53 - General well developed, well nourished, no distress - Respiratory normal respiratory effort - Abdomen Abdomen: soft, non tender, no guarding, no rigid, no rebound - Genitourinary normal penis with no external lesions, testicles non-tender - Rectum Rectum: normal sphincter tone, no masses, other (Prostate mildly enlarged but smooth) - Psychiatric oriented to time, oriented to person, oriented to place, speech is normal, kevin ry intact Results - Labs 12/09/20 06:56 12/09/20 06:56 Assessment and Plan (1) Retention of urine, unspecified Current Visit: Yes Status: Acute Code(s): R33.9 - RETENTION OF URINE, UNSPECIFIED SNOMED Code(s): 481732573 Plan: Continue Centeno catheter drainage. The patient has been placed on tamsulosin 0.8 mg daily. The catheter may be removed in several days for a voiding trial. Time with Patient: Greater than 30
--- NOTE | 2020-12-11 12:32 | XR ---
EXAMINATION TYPE: XR Hip Limited RT DATE OF EXAM: 12/11/2020 CLINICAL HISTORY: Pain fall TECHNIQUE: Single view limited evaluation of the right hip. COMPARISON: None. FINDINGS: There is no acute fracture/dislocation evident in the right hip. The joint space in the r ight hip appears mildly narrowed. The overlying soft tissue appears unremarkable. Vascular calcificat ions identified. IMPRESSION: There is no acute fracture or dislocation in the right hip.
--- NOTE | 2020-12-11 13:33 | P.PN ---
Subjective Progress Note Date: 12/11/20 Chief Complaint: Difficulty ambulating, falls or weakness bilateral legs with imbalance Is a 75-year-old gentleman patient of Dr. Magaña, with no significant medical history, except for BPH. Patient has complained of falls, patient lives alone, patient has difficulty in his balance, he has fallen down 3 times within the past 6 months, he was not diagnosed to have Parkinson's disease, or dementia, however he has difficulty with performing tasks at home, requires a walker for community ambulation. Patient has had chronic back pain ever since he was a child, there was no surgical recommendation for this one, and patient is suffered through it. Patient is not on any opiates prior to admission, Emergency room, labs look okay except for chloride that is 110 INR 0.9, blood sugar between 83-147, hemoglobin 13.3, creatinine of 0.8, urinalysis shows 69 WBC, the emergency room has not notified me of these reports. In the nursing floor, patient has urinary retention of approximately 400, Flomax was started today. Repeat PVR and renal ultrasound. Patient has urgency, and urine frequency. PT OT has been consulted, we've discussed this with the patient for imaging of the low back for an MRI, to rule out spinal stenosis, patient is in agreement for this 12/10 patient had problems with his Collins catheter last night, it has to be reinserted, however patient pulled off before catheter accidentally, there is blood in his penis, and he seems to be distended today, we'll going to increase Flomax to 0.4 mg twice a day, consult urology, collins catheterneed to be inserted pvr was over 400 mL, abdomen seems to be distended today eyes show spinal stenosis, L4-L5, with moderate on the left, severe on the right L4-L5, has some radiculopathy to the right knee, however primary show arthritis of the right hip and knee is not ruled out consultt with Dr. Tristan, for spinal stenosis culture currently is pending, on IV antibiotics 12/11: Patient is seen by urology, for which folic acid there was recommended to stay for a few days thereafter voiding trial, no blood clots seen in the Collins catheter today, patient remains on Flomax. Patient also was seen by orthospine, for which they have started on Solu-Medrol 60 every 12 hours, with counseled to anesthesia pain, for epidural steroid injection. Cultures are contaminated over 100,000 colonies, continue on IV anti-backs, most likely would need quinolone for prostatism, Cipro 250 twice a day for 14 days, anticipate therapy for subacute rehab in the next 24-48 hours, however epidural steroid injection would be done prior after seen by pain management Review of Systems Constitutional: Reports as per HPI, Denies anorexia, Denies chills, Denies chronic headaches, Denies chronic pain, Denies daytime sleepiness, Denies fatigue, Denies fever, Denies lethargy, Denies malaise, Denies night sweats, Denies poor appetite, Denies sweats, Denies weakness, Denies weight gain, Denies weight loss Ears, nose, mouth and throat: Reports as per HPI Cardiovascular: Reports as per HPI Respiratory: Reports as per HPI Gastrointestinal: Reports as per HPI Genitourinary: Reports as per HPI, Denies decreased libido, Denies difficulties fathering child, Denies discharge, Denies dysuria, Denies erectile dysfunction, Denies flank pain, Denies genital pain, Denies genital sores, Denies hematuria, Denies impotence, Denies incontinence, Denies kidney stones, Denies nocturia, Denies polyuria, Denies testicular lump, Denies testicular pain, Denies urinary frequency, Denies urinary hesitancy, Denies urinary retention Musculoskeletal: Reports as per HPI, Reports gait dysfunction, Reports limitation of motion, Reports low back pain Neurological: Reports as per HPI, Reports motor disturbance, Reports paresthesias Psychiatric: Reports as per HPI Endocrine: Reports as per HPI Hematologic/Lymphatic: Reports as per HPI Allergic/Immunologic: Reports as per HPI Objective - Vital Signs Vital signs: Vital Signs Temp 97.5 F L 12/11/20 12:14 Pulse 73 12/11/20 12:14 Resp 18 12/11/20 12:14 BP 113/68 12/11/20 12:14 Pulse Ox 96 12/11/20 12:14 Intake & Output 12/10/20 12/11/20 12/11/20 18:59 06:59 18:59 Intake Total 720 Output Total 2100 2900 Balance -1380 -2900 Intake: Oral 720 Output: Urine 2100 2900 Uretheral (Collins) 1300 500 Other: Voiding Method Self-Catheterization Indwelling Catheter - Constitutional General appearance: Present: cooperative, no acute distress - EENT Eyes: Present: EOMI, PERRLA, dentition normal, normal appearance - Neck Neck: Present: normal ROM - Respiratory Respiratory: bilateral: CTA, negative: diminished, dullness, rales - Cardiovascular Rhythm: regular Heart sounds: normal: S1 Abnormal Heart Sounds: Absent: systolic murmur, diastolic murmur, rub, S3 Gallop, S4 Gallop, click, other - Gastrointestinal General gastrointestinal: Present: normal bowel sounds - Integumentary Integumentary: Present: decreased turgor, normal - Musculoskeletal Musculoskeletal: Present: strength equal bilaterally - Psychiatric Psychiatric: Present: A&O x's 3, appropriate affect - Labs CBC & Chem 7: 12/09/20 06:56 12/09/20 06:56 Assessment and Plan Plan: 1. Recurrent falls, with impaired balance and gait, suspect spinal stenosis, with chronic back pain or L5 lesion, with moderate spinal stenosis, disc bulging as well as other discs. PT OT, with consultation for social work for subacute rehabilitation no previous diagnosis of Parkinson's disease or normal pressure hydrocephalus patient is receiving IV Solu-Medrol, 60 every 12 hours, pain management with epidural steroid injection, we will hold off any anticoagulation at this time . 2. Acute urinary tract infection cultures are over 100,000 colonies, contamination, most likely underlying prostatism, with BPH L TTS,, started with Rocephin, with cultures are finalized, plan on discharging him with ciprofloxacin, to 250 twice a day for 14 days 3. Urinary retention with BPH, L UTS, PVR is elevated at 400, to straight cath performed, start Flomax 0.8mg daily 4. Traumatic Collins catheter, accidentally removed by the patient, secondary to confusion. Has gross hematuria, consult with urology, Collins catheter e reinserted. Urine 4. Debility, with fracture risk check B12, and TSH check for CPK for rhabdomyolysis 5. GI prophylaxis Pepcid oral 6 DVT prophylaxis Lovenox 40 mg daily
[2020-12-11] MEDS: methylPREDNISolone SOD SUCCI 125 MG/2 ML VIAL IV SCH (20:37)
[2020-12-11] MEDS: MELATONIN 3 MG TABLET PO SCH (20:38)
[2020-12-12] MEDS: TAMSULOSIN 0.4 MG CAP.ER.24H PO SCH ×2 (10:21→20:26)
[2020-12-12] MEDS: MELOXICAM 7.5 MG TAB PO SCH (10:21)
[2020-12-12] MEDS: methylPREDNISolone SOD SUCCI 125 MG/2 ML VIAL IV SCH ×2 (10:22→20:26)
[2020-12-12] MEDS: FAMOTIDINE 20 MG TAB PO SCH ×2 (10:23→20:26)
--- NOTE | 2020-12-12 12:43 | P.PN ---
Subjective Progress Note Date: 12/12/20 HISTORY OF PRESENT ILLNESS Is a 75-year-old gentleman patient of Dr. Magaña, with no significant medical history, except for BPH. Patient has complained of falls, patient lives alone, patient has difficulty in his balance, he has fallen down 3 times within the past 6 months, he was not diagnosed to have Parkinson's disease, or dementia, however he has difficulty with performing tasks at home, requires a walker for community ambulation. Patient has had chronic back pain ever since he was a child, there was no surgical recommendation for this one, and patient is suffered through it. Patient is not on any opiates prior to admission, Emergency room, labs look okay except for chloride that is 110 INR 0.9, blood sugar between 83-147, hemoglobin 13.3, creatinine of 0.8, urinalysis shows 69 WBC, the emergency room has not notified me of these reports. In the nursing floor, patient has urinary retention of approximately 400, Flomax was started today. Repeat PVR and renal ultrasound. Patient has urgency, and urine frequency. PT OT has been consulted, we've discussed this with the patient for imaging of the low back for an MRI, to rule out spinal stenosis, patient is in agreement for this 12/10 patient had problems with his Collins catheter last night, it has to be reinserted, however patient pulled off before catheter accidentally, there is blood in his penis, and he seems to be distended today, we'll going to increase Flomax to 0.4 mg twice a day, consult urology, collins catheterneed to be inserted pvr was over 400 mL, abdomen seems to be distended today eyes show spinal stenosis, L4-L5, with moderate on the left, severe on the right L4-L5, has some radiculopathy to the right knee, however primary show arthritis of the right hip and knee is not ruled out consultt with Dr. Tristan, for spinal stenosis culture currently is pending, on IV antibiotics 12/11: Patient is seen by urology, for which folic acid there was recommended to stay for a few days thereafter voiding trial, no blood clots seen in the Collins catheter today, patient remains on Flomax. Patient also was seen by orthospine, for which they have started on Solu-Medrol 60 every 12 hours, with counseled to anesthesia pain, for epidural steroid injection. Cultures are contaminated over 100,000 colonies, continue on IV anti-backs, most likely would need quinolone for prostatism, Cipro 250 twice a day for 14 days, anticipate therapy for subacute rehab in the next 24-48 hours, however epidural steroid injection would be done prior after seen by pain management 12/12: The patient is Collins catheter and draining clear pascale urine. Plan for removal in one week and patient will be continued on Flomax. Patient is denying any pain or discomfort and appears to be comfortable today. Pain management will follow up on an outpatient basis. Plan for oral prednisone at the time of discharge. Patient has been afebrile, heart rate 85, blood pressure 115/69, pulse ox 92% on room air. Discharge plan is [facility] [place] which is scheduled for tomorrow. REVIEW OF SYSTEMS Constitutional: No fever, no chills, no night sweats. No weight change. No weakness, fatigue or lethargy. No daytime sleepiness. EENT: No headache. No blurred vision or double vision, no loss of vision. No loss of Hearing, no ringing in the ears, no dizziness. No nasal drainage or congestion. No epistaxis. No sore throat. Lungs: No shortness of breath, cough, no sputum production. No wheezing. Cardiovascular: No chest pain, no lower extremity edema. No palpitations. No paroxysmal nocturnal dyspnea. No orthopnea. No lightheadedness or dizziness. No syncopal episodes. Abdominal: No abdominal pain. No nausea, vomiting. No diarrhea. No constipation. No bloody or tarry stools.. No loss of appetite. Genitourinary: No dysuria, increased frequency, urgency. No urinary retentio- Collins. Musculoskeletal: No myalgias. No muscle weakness, no gait dysfunction, no frequent falls. No back pain. No neck pain. Integumentary: No wounds, no lesions. No rash or pruritus. No unusual bruising. No change in hair or nails. Neurologic: No aphasia. No facial droop. No change in mentation. No head injury. No headache. No paralysis. No paresthesia. Psychiatric: No depression. No anxiety. No mood swings. Endocrine: No abnormal blood sugars. No weight change. No excessive sweating or thirst. No cold intolerance. PHYSICAL EXAMINATION Gen: This is a 75-year-old male. He is resting in chair and appears to be comfortable and in no acute distress. HEENT: Head is atraumatic, normocephalic. Pupils equal, round. Sclerae is anicteric. NECK: Supple. No JVD. No lymphadenopathy. No thyromegaly. LUNGS: Clear to auscultation. No wheezes or rhonchi. No intercostal retractions. HEART: Regular rate and rhythm. No murmur. ABDOMEN: Soft. Bowel sounds are present. No masses. No tenderness. EXTREMITIES: No pedal edema. No calf tenderness. NEUROLOGICAL: Patient is awake, alert and oriented x3. Cranial nerves 2 through 12 are grossly intact. ASSESSMENT AND PLAN 1. Recurrent falls, with impaired balance and gait, suspect spinal stenosis, with chronic back pain or L5 lesion, with moderate spinal stenosis, disc bulging as well as other discs. PT OT, with consultation for social work for subacute rehabilitation no previous diagnosis of Parkinson's disease or normal pressure hydrocephalus patient is receiving IV Solu-Medrol 60 every 12 hours, pain management will follow up on an outpatient appointment. 2. Acute urinary tract infection cultures are over 100,000 colonies, contamination, most likely underlying prostatism, with BPH L TTS, continue Rocephin and plan for outpatient treatment with ciprofloxacin, to 250 twice a day for 14 days 3. Urinary retention with BPH, L UTS, PVR is elevated at 400, to straight cath performed, start Flomax 0.8mg daily 4. Traumatic Collins catheter, accidentally removed by the patient, secondary to confusion. Has gross hematuria, consult with urology, Collins catheter e reinserted. Urine 5. Debility, with fracture risk check B12, and TSH check for CPK for rhabdomyolysis 6. GI prophylaxis Pepcid oral 7. DVT prophylaxis Lovenox 40 mg daily DISCHARGE PLAN [facility] [place]. Impression and plan of care have been directed as dictated by the signing physician. Nelda Temple nurse practitioner acting as scribe for signing physician. Objective - Vital Signs Vital signs: Vital Signs Temp 97.5 F L 12/12/20 05:00 Pulse 94 12/12/20 05:00 Resp 16 12/12/20 05:00 BP 127/69 12/12/20 05:00 Pulse Ox 94 L 12/12/20 05:00 Intake & Output 12/11/20 12/12/20 12/12/20 18:59 06:59 18:59 Intake Total 1070 200 Output Total 1000 500 Balance 70 -300 Intake: Intake, IV Titration 100 Amount cefTRIAXone 1 gm In 100 Sodium Chloride 0.9% 50 ml @ 100 mls/hr IVPB Q24H [facility] Rx#:[id number] Oral 1070 100 Output: Urine 1000 500 Uretheral (Collins) 500 Other: Voiding Method Indwelling Catheter Indwelling Catheter # Bowel Movements 1 - Labs CBC & Chem 7: 12/09/20 06:56 12/09/20 06:56
--- NOTE | 2020-12-12 13:00 | P.PN ---
Progress Note - Text Progress Note Date: 12/12/20 Orthopedic spine: History of present illness: Patient is a pleasant 75-year-old male who is seen and examined at bedside for follow-up evaluation for his lumbosacral spine. He does admit to some chronic low back pain with pain radiating over the right hip which she does feel has improved since his admittance to the hospital. He also has some numbness that radiates down the left lower extremity. Today he states he has some soreness of his lumbar spine without significant pain. He does feel generally weak in the bilateral lower extremities. He is currently waiting for consultation with pain management. 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 States he would like to be discharged home but will be going to go to a rehab facility patient if it helps him regaining his lower extremity strength. He has been receiving Solu-Medrol during his admission to the hospital which has been beneficial for him. He denies specific weakness of the bilateral lower extremities. He does state he would like to avoid surgical intervention in regards to his lumbar spine. He would like to work through physical therapy as well as consultation and treatment with pain management. He has had some difficulty with urinary retention. He has been seen by Dr. Calero in urology. A Centeno catheter is currently placed. Then a plan for removal of this catheter and a few days to check for voiding. He is been started on Flomax. Lumbar MRI imaging and right hip x-ray imaging has been performed. He is eating without difficulty. Nursing states as the day has gone on his symptoms have continued to improve. He has been seen by pain management who is not currently planning for an injection due to the patient's improvement. He has been able to ambulate to the restroom. Nursing also states patient has been approved for discharge to a rehabilitation facility [place], [place] for tomorrow. Physical exam: Patient is awake, alert, and oriented 3 Vital signs stable Good chest excursion with deep inspiration and expiration Examination of lumbar spine reveals skin is intact with no abrasions, lacerations, or bruises; no erythema, purulence or signs of infection Dorsiflexion, plantarflexion, and extensor hallucis longus positive sustained bilaterally Lower extremity strength 5/5 bilaterally Patient is able to perform active range of motion of bilateral lower extremities independently without significant difficulty No lower extremity hyperreflexia bilaterally Straight leg test negative bilateral lower extremities No signs or symptoms of DVT; no calf pain No pain with internal and external rotation of the hips bilaterally Neurovascularly intact Centeno catheter intact Pertinent studies: MRI of the lumbar spine taken on 12/10/2020: L1-2 disc desiccation and degenerative disc disease; L2-3 disc desiccation, degenerative disc disease, circumferential disc bulging, with ligamentum flavum buckling resulting in mild right neural foraminal narrowing; L3-4 disc desiccation, degenerative disc disease, mild disc bulging, facet arthropathy, and ligamentum flavum buckling resulting in mild central canal stenosis and left neural foraminal stenosis; L4- 5 broad-based disc bulge eccentric to the right, facet joint arthropathy greater on the left than the right, and ligamentum flavum thickening resulting in central canal stenosis and severe right and mild left neural foraminal stenosis; L5-S1 circumferential disc bulging and facet arthropathy resulting in moderate bilateral neural foraminal stenosis; hemangioma of the L4 vertebral body; L3 Schmorl's node at the superior endplate X-ray of the right hip taken on 12/11/2020: No acute fracture dislocation within the right hip; itappears to be fairly well maintained with mild narrowing Assessment: L4-5 spinal canal stenosis and severe right neuroforaminal stenosis L3-4 spinal canal stenosis Lumbar degenerative disc disease Lumbar facet arthropathy L4 vertebral body hemangioma Superior endplate Schmorl's node of L3 Generalized lower extremity weakness Right lower extremity radiculopathy radiating over the right hip Left lower extremity numbness Low back pain Urinary retention with Centeno catheter intact History of prostate disorder Plan: 1. After further discussion with the patient, reviewing the imaging, and physical examination the patient, we will currently plan to continue treatment patient would like to work physical therapy as well as work through further treatment with pain management. We did discuss his lumbar MRI in significant detail. He does have multilevel stenosis and degenerative disc disease with his most significant level at L4-5. We did discuss if he were to fail conservative treatment options he could be a candidate for surgical intervention of his lumbar spine. Patient would like to exhaust conservative treatment options first. We did discuss at this time, patient is clear for discharge from an orthopedic spine standpoint. Patient may follow-up with Luciano Watt PA-C or Dr. Diony Tristan at [facility] in 2-3 weeks following discharge. He has had some benefit with Solu-Medrol during his admission. Medicine has placed orders to discharge the patient to a rehabilitation facility on a prednisone taper at the time of discharge which we do feel is a good plan of care. He is also encouraged to continue using a walker or other aid to aid in ambulation as needed. 2. Patient will continue with treatment and evaluation for his urinary retention with Centeno catheter placement further recommendations of urology 3. Patient will continue be seeing examined by medicine. Medicine is planning for discharge to a rehabilitation facility in [place], [place] tomorrow, 12/13/2020. 4. Patient will plan to follow with pain management in the outpatient setting for further treatment and evaluation and to discuss further treatment options based on how he is progressing through conservative treatment.
--- NOTE | 2020-12-12 16:17 | P.PN ---
Subjective Progress Note Date: 12/12/20 No acute overnight event, collins in place draining clear yellow urine Objective - Vital Signs Vital signs: Vital Signs Temp 97.4 F L 12/12/20 11:23 Pulse 85 12/12/20 11:23 Resp 18 12/12/20 11:23 BP 115/69 12/12/20 11:23 Pulse Ox 92 L 12/12/20 11:23 Intake & Output 12/11/20 12/12/20 12/12/20 18:59 06:59 18:59 Intake Total 1070 200 Output Total 1000 500 Balance 70 -300 Intake: Intake, IV Titration 100 Amount cefTRIAXone 1 gm In 100 Sodium Chloride 0.9% 50 ml @ 100 mls/hr IVPB Q24H [facility] Rx#:[id number] Oral 1070 100 Output: Urine 1000 500 Uretheral (Collins) 500 Other: Voiding Method Indwelling Catheter Indwelling Catheter Indwelling Catheter # Bowel Movements 1 - Constitutional General appearance: Present: no acute distress - Gastrointestinal General gastrointestinal: Present: soft. Absent: distended - Genitourinary Genitourinary Comment(s): collins draining clear yellow urine - Labs CBC & Chem 7: 12/09/20 06:56 12/09/20 06:56 Assessment and Plan Assessment: 75 yo male with urinary retention, collins placed yesterday, and have a trial of void in 5-7 days. If patient still in the hospital or a prison can be done over there, but patient is discharged home then can follow-up as an outpati ent with Dr. Calero for trial void. Recommend to continue the Flomax 0.8 mg
[2020-12-12] MEDS: MELATONIN 3 MG TABLET PO SCH (20:27)
[2020-12-13 04:14] VITALS: BP 114/67; PULSE 72; RESP 18; TEMP 97.6
[2020-12-13] MEDS: MELOXICAM 7.5 MG TAB PO SCH (07:56)
[2020-12-13] MEDS: FAMOTIDINE 20 MG TAB PO SCH (07:56)
[2020-12-13] MEDS: methylPREDNISolone SOD SUCCI 125 MG/2 ML VIAL IV SCH (07:56)
[2020-12-13] MEDS: TAMSULOSIN 0.4 MG CAP.ER.24H PO SCH (07:56)
[2020-12-13] MEDS ORDERED: ERGOCALCIFEROL 1,250 MCG (50,000 IU) CAPSULE PO SCH (09:00)
--- NOTE | 2020-12-13 09:19 | P.DS ---
Providers Date of admission: 12/08/20 17:48 Expected date of discharge: 12/13/20 Attending physician: Chun Gonzalez Consults: 12/10/20 13:57 Consult Physician Routine Consulting Provider: Brayan Tristan Consult Reason/Comments: lumbar myelopathy spinal stenosis l5 Do you want consulting provider notified?: Yes 12/10/20 13:58 Consult Physician Routine Consulting Provider: Dmitriy Calero Consult Reason/Comments: urinary retention traumatic removal hematuria Do you want consulting provider notified?: Yes Primary care physician: [facility] Course: HISTORY OF PRESENT ILLNESS Is a 75-year-old gentleman patient of Dr. Magaña, with no significant medical history, except for BPH. Patient has complained of falls, patient lives alone, patient has difficulty in his balance, he has fallen down 3 times within the past 6 months, he was not diagnosed to have Parkinson's disease, or dementia, however he has difficulty with performing tasks at home, requires a walker for community ambulation. Patient has had chronic back pain ever since he was a child, there was no surgical recommendation for this one, and patient is suffered through it. Patient is not on any opiates prior to admission, Emergency room, labs look okay except for chloride that is 110 INR 0.9, blood sugar between 83-147, hemoglobin 13.3, creatinine of 0.8, urinalysis shows 69 WBC, the emergency room has not notified me of these reports. In the nursing floor, patient has urinary retention of approximately 400, Flomax was started today. Repeat PVR and renal ultrasound. Patient has urgency, and urine frequency. PT OT has been consulted, we've discussed this with the patient for imaging of the low back for an MRI, to rule out spinal stenosis, patient is in agreement for this 12/10 patient had problems with his Collins catheter last night, it has to be reinserted, however patient pulled off before catheter accidentally, there is blood in his penis, and he seems to be distended today, we'll going to increase Flomax to 0.4 mg twice a day, consult urology, collins catheterneed to be inserted pvr was over 400 mL, abdomen seems to be distended today eyes show spinal stenosis, L4-L5, with moderate on the left, severe on the right L4-L5, has some radiculopathy to the right knee, however primary show arthritis of the right hip and knee is not ruled out consultt with Dr. Tristan, for spinal stenosis culture currently is pending, on IV antibiotics 12/11: Patient is seen by urology, for which folic acid there was recommended to stay for a few days thereafter voiding trial, no blood clots seen in the Collins catheter today, patient remains on Flomax. Patient also was seen by orthospine, for which they have started on Solu-Medrol 60 every 12 hours, with counseled to anesthesia pain, for epidural steroid injection. Cultures are contaminated over 100,000 colonies, continue on IV anti-backs, most likely would need quinolone for prostatism, Cipro 250 twice a day for 14 days, anticipate therapy for subacute rehab in the next 24-48 hours, however epidural steroid injection would be done prior after seen by pain management 12/12: The patient is Collins catheter and draining clear pascale urine. Plan for removal in one week and patient will be continued on Flomax. Patient is denying any pain or discomfort and appears to be comfortable today. Pain management will follow up on an outpatient basis. Plan for oral prednisone at the time of discharge. Patient has been afebrile, heart rate 85, blood pressure 115/69, pulse ox 92% on room air. Discharge plan [facility] [place] which is scheduled for tomorrow. 12/13: Patient denies any new complaints. He has been stable and is scheduled for discharge to [facility] today. Patient has been afebrile, heart rate 72, blood pressure 114/67, pulse ox 95% on room air. Patient will be discharged today once all arrangements are completed. ASSESSMENT AND PLAN 1. Recurrent falls, with impaired balance and gait, suspect spinal stenosis, with chronic back pain or L5 lesion, with moderate spinal stenosis, disc bulging as well as other discs. 2. Acute urinary tract infection cultures are over 100,000 colonies, contamination, most likely underlying prostatism, with BPH L TTS 3. Urinary retention with BPH, L UTS 4. Traumatic Collins catheter, accidentally removed by the patient, secondary to confusion. 5. Debility, with fracture risk DISCHARGE PLAN [facility] [place]. Impression and plan of care have been directed as dictated by the signing physician. Nelda Temple nurse practitioner acting as scribe for signing physici an. Patient Condition at Discharge: Good Plan - Discharge Summary Discharge Rx Participant: Yes New Discharge Prescriptions: New Ciprofloxacin HCl [Cipro] 250 mg PO Q12H 14 Days #28 tab Melatonin 6 mg PO HS tablet Famotidine [Pepcid] 20 mg PO BID tab predniSONE 0 mg PO DIRECTED #48 tab Cyanocobalamin [Vitamin B-12] 500 mcg PO DAILY #30 tablet Tamsulosin [Flomax] 0.8 mg PO DAILY #60 cap Continue Meloxicam [Mobic] 15 mg PO DAILY Ergocalciferol [Vitamin D2 (1250 Mcg = 40936 Iu)] 1,250 mcg PO WE Discharge Medication List Ergocalciferol [Vitamin D2 (1250 Mcg = 32878 Iu)] 1,250 mcg PO WE 12/08/20 [History] Meloxicam [Mobic] 15 mg PO DAILY 12/08/20 [History] Ciprofloxacin HCl [Cipro] 250 mg PO Q12H 14 Days #28 tab 12/12/20 [Rx] Famotidine [Pepcid] 20 mg PO BID tab 12/12/20 [Rx] Melatonin 6 mg PO HS tablet 12/12/20 [Rx] predniSONE 0 mg PO DIRECTED #48 tab 12/12/20 [Rx] Cyanocobalamin [Vitamin B-12] 500 mcg PO DAILY #30 tablet 12/13/20 [Rx] Tamsulosin [Flomax] 0.8 mg PO DAILY #60 cap 12/13/20 [Rx] Follow up Appointment(s)/Referral(s): Dmitriy Calero MD [STAFF PHYSICIAN] - 1 Week Luciano Watt PAC [PHYSICIAN CONTACT FINGER ASSEMBLER] - 3 Weeks (Patient may follow-up with Luciano Watt PA-C or Dr. Diony Tristan at [facility] in 2-3 weeks following discharge. ) Filipe Florentino DO [Primary Care Provider] - 1 Week (After discharge from rehab) Patient Instructions/Handouts: Ciprofloxacin (By mouth), Urinary Retention in Men (GEN), Enlarged Prostate (BPH) (DC) Activity/Diet/Wound Care/Special Instructions: Per Dr. Latham-Patient to be discharged with Collins catheter in place. May remove in one week if at [facility] and perform a trial. If patient discharged home, patient is to follow up with Dr. Calero in 1 week for removal of catheter. Discharge Disposition: TRANSFER TO SNF/ECF
== END 2020-12-13 13:27 | DRG 552 ==
LOC: EC 13:29 → 5NMEDONC 17:48
PROVIDERS: ADMIT Internal Medicine Geriatric Medicine; ATTEND Internal Medicine Geriatric Medicine
DX: M51.16 Intervertebral disc disorders with radiculopathy, lumbar region (principal); M47.16 Other spondylosis with myelopathy, lumbar region; M51.06 Intervertebral disc disorders with myelopathy, lumbar region; N39.0 Urinary tract infection, site not specified; S37.30XA Unspecified injury of urethra, initial encounter; M48.061 Spinal stenosis, lumbar region without neurogenic claudication; M47.26 Other spondylosis with radiculopathy, lumbar region; N40.1 Benign prostatic hyperplasia with lower urinary tract symptoms; R33.8 Other retention of urine; R31.0 Gross hematuria; D18.09 Hemangioma of other sites; G89.29 Other chronic pain; R29.6 Repeated falls; Z79.1 Long term (current) use of non-steroidal anti-inflammatories (NSAID); Z79.899 Other long term (current) drug therapy; Z91.81 History of falling; Z87.891 Personal history of nicotine dependence; Z82.49 Family history of ischemic heart disease and other diseases of the circulatory system; X58.XXXA Exposure to other specified factors, initial encounter; Y92.239 Unspecified place in hospital as the place of occurrence of the external cause
CPT/HCPCS: 36415; 71046; 72148; 73501; 80048; 80053; 81001; 82550; 82607; 83605; 83735; 84443; 84484; 85025; 85610; 85730; 87086; 93005; 99285

== ENCOUNTER 2021-01-05 20:35 | Inpatient (IN) | payer MEDICARE, OTHER ==
[2021-01-05] MEDS ORDERED: DICYCLOMINE 10 MG/ML 2 ML AMP IM STA (20:54)
[2021-01-05] MEDS ORDERED: SODIUM CHLORIDE 0.9% 1,000 ML IV STA (20:54)
[2021-01-05] MEDS ORDERED: PANTOPRAZOLE 40 MG/10 ML VIAL IVP STA (20:54)
--- NOTE | 2021-01-05 21:11 | ED ---
General Adult HPI - General Chief complaint: Nausea/Vomiting/Diarrhea Stated complaint: Diarrhea, weakness Time Seen by Provider: 01/05/21 20:38 Source: patient, EMS, RN notes reviewed Mode of arrival: ambulatory Limitations: no limitations - History of Present Illness Initial comments: Patient is a pleasant 75-year-old male presenting to the emergency Department with diarrhea and fatigue. Patient was recently diagnosed with urinary tract infection and has been on antibiotics for 10 days. Patient believes he may be done. Patient has had several episodes of large amount of watery diarrhea over the past 2-3 days. Only a couple times per day. Patient has mild abdominal discomfort just prior to diarrhea otherwise no abdominal discomfort or pain. No vomiting. No fever. Patient does feel fatigued - Related Data Home Medications Medication Instructions Recorded Confirmed Ergocalciferol [Vitamin D2 (1250 1,250 mcg PO WE 12/08/20 01/05/21 Mcg = 59586 Iu)] Meloxicam [Mobic] 15 mg PO DAILY 12/08/20 01/05/21 Melatonin 9 mg PO HS 01/05/21 01/05/21 Omeprazole 20 mg PO HS 01/05/21 01/05/21 Vitamin B-12 250mcg 250 mcg PO Q12H 01/05/21 01/05/21 Previous Rx's Medication Instructions Recorded Tamsulosin [Flomax] 0.8 mg PO DAILY #60 cap 12/13/20 Allergies Allergy/AdvReac Type Severity Reaction Status Date / Time ether AdvReac Confusion Verified 01/05/21 22:02 Review of Systems ROS Statement: Those systems with pertinent positive or pertinent negative responses have been documented in the HPI. ROS Other: All systems not noted in ROS Statement are negative. Constitutional: Denies: fever Eyes: Denies: eye pain ENT: Denies: ear pain Respiratory: Denies: cough Cardiovascular: Denies: chest pain Endocrine: Reports: fatigue Gastrointestinal: Reports: as per HPI, diarrhea Genitourinary: Denies: dysuria Musculoskeletal: Denies: back pain Skin: Denies: lesions Past Medical History Past Medical History: Prostate Disorder Additional Past Medical History / Comment(s): Left Achilles tendon rupture 6-7 years ago. bph History of Any Multi-Drug Resistant Organisms: None Reported Past Surgical History: Hernia Repair, Tonsillectomy Additional Past Surgical History / Comment(s): left forearm compound fracture surgical alignment and casting Past Anesthesia/Blood Transfusion Reactions: Postoperative Nausea & Vomiting (PONV) Past Psychological History: No Psychological Hx Reported Smoking Status: Former smoker Past Alcohol Use History: None Reported Past Drug Use History: None Reported - Past Family History Mother Family Medical History: No Reported History, Coronary Artery Disease (CAD) Father Family Medical History: No Reported History General Exam Limitations: no limitations General appearance: alert, in no apparent distress Head exam: Present: atraumatic, normocephalic Eye exam: Present: normal appearance, PERRL, EOMI ENT exam: Present: normal oropharynx Neck exam: Present: normal inspection Respiratory exam: Present: normal lung sounds bilaterally Cardiovascular Exam: Present: regular rate, normal rhythm GI/Abdominal exam: Present: soft. Absent: distended, tenderness, guarding, rebound, rigid, pulsatile mass Extremities exam: Present: normal inspection Neurological exam: Present: alert, CN II-XII intact. Absent: motor sensory deficit Expanded Neurological exam: Present: protecting the airway Speech: Present: fluid speech Cranial nerves: EOM's Intact: Normal Sensory exam: Upper Extremity Light Touch: Normal, Lower Extremity Light Touch: Normal Motor strength exam: RUE: 5, LUE: 5, RLE: 5, LLE: 5 Eye Response: (4) open spontaneously Motor Response: (6) obeys commands Verbal Response: (5) oriented Psychiatric exam: Present: normal affect, normal mood Skin exam: Present: normal color Course Vital Signs 01/05/21 20:44 Temperature 98.4 F Pulse Rate 87 Respiratory 16 Rate Blood Pressure 97/61 O2 Sat by Pulse 94 L Oximetry Medical Decision Making - Medical Decision Making Patient reevaluated and resting comfortably in bed. Patient did have one blood pressure of 88 however has had 2 systolic blood pressures over 100 since that time. Patient has had 1.5 L of fluid at this time. Family states patient was recently discharged from rehab facility however unable take care of himself at home. Patient is unable to walk on his own. Case was discussed with Dr. Leach, who will admit covering Dr. Magaña. - Lab Data Result diagrams: 01/05/21 21:17 01/05/21 21:17 Lab Results 01/05/21 01/05/21 Range/Units 21:17 21:17 WBC 13.6 H (3.8-10.6) k/uL RBC 4.37 (4.30-5.90) m/uL Hgb 14.0 (13.0-17.5) gm/dL Hct 42.2 (39.0-53.0) % MCV 96.6 (80.0-100.0) fL MCH 31.9 (25.0-35.0) pg MCHC 33.1 (31.0-37.0) g/dL RDW 12.7 (11.5-15.5) % Plt Count 250 (150-450) k/uL MPV 7.8 Neutrophils % 78 % Lymphocytes % 11 % Monocytes % 7 % Eosinophils % 2 % Basophils % 0 % Neutrophils # 10.7 H (1.3-7.7) k/uL Lymphocytes # 1.5 (1.0-4.8) k/uL Monocytes # 0.9 (0-1.0) k/uL Eosinophils # 0.2 (0-0.7) k/uL Basophils # 0.0 (0-0.2) k/uL Sodium 135 L (137-145) mmol/L Potassium 5.3 H (3.5-5.1) mmol/L Chloride 107 (98-107) mmol/L Carbon Dioxide 21 L (22-30) mmol/L Anion Gap 7 mmol/L BUN 16 (9-20) mg/dL Creatinine 0.78 (0.66-1.25) mg/dL Est GFR (CKD-EPI)AfAm >90 (>60 ml/min/1.73 sqM) Est GFR (CKD-EPI)NonAf 89 (>60 ml/min/1.73 sqM) Glucose 111 H (74-99) mg/dL Calcium 9.0 (8.4-10.2) mg/dL Total Bilirubin 1.3 (0.2-1.3) mg/dL AST 40 (17-59) U/L ALT 26 (4-49) U/L Alkaline Phosphatase 36 L (38-126) U/L Total Protein 6.8 (6.3-8.2) g/dL Albumin 3.8 (3.5-5.0) g/dL Disposition Clinical Impression: Dehydration, Diarrhea, Hypotensive episode Disposition: ADMITTED IP TO THIS HOSP Is patient prescribed a controlled substance at d/c from ED?: No Referrals: Glapinski,Filipe, DO [Primary Care Provider] - 1-2 days Decision Time: 22:58
[2021-01-05 21:48] LABS: Basophils % (A) 0 %; Eosinophils # (A) 0.2 k/uL (0-0.7); Eosinophils % (A) 2 %; HCT 42.2 % (39.0-53.0); Lymphocytes # (A) 1.5 k/uL (1.0-4.8); Lymphocytes % (A) 11 %; MCH 31.9 pg (25.0-35.0); MCHC 33.1 g/dL (31.0-37.0); MCV 96.6 fL (80.0-100.0); Mean Platelet Volume 7.8; Monocytes # (A) 0.9 k/uL (0-1.0); Monocytes % (A) 7 %; Neutrophils # (A) 10.7 k/uL (1.3-7.7); Neutrophils % (A) 78 %; Platelet Count 250 k/uL (150-450); RBC 4.37 m/uL (4.30-5.90); RDW 12.7 % (11.5-15.5); WBC 13.6 k/uL (3.8-10.6)
[2021-01-05 22:25] LABS: ALT 26 U/L (4-49); African American GFR (CKD) >90 (>60 ml/min/1.73 sqM); Anion Gap 7 mmol/L; Blood Urea Nitrogen 16 mg/dL (9-20); Carbon Dioxide 21 mmol/L (22-30); Chloride 107 mmol/L (98-107); Glucose 111 mg/dL (74-99); Non-African American GFR(CKD) 89 (>60 ml/min/1.73 sqM); Sodium 135 mmol/L (137-145); Total Bilirubin 1.3 mg/dL (0.2-1.3)
[2021-01-05 22:27] LABS: AST 40 U/L (17-59); Albumin 3.8 g/dL (3.5-5.0); Alkaline Phosphatase 36 U/L (38-126); Potassium 5.3 mmol/L (3.5-5.1); Total Protein 6.8 g/dL (6.3-8.2)
[2021-01-05] MEDS ORDERED: ACETAMINOPHEN TAB 325 MG TAB PO PRN (22:58)
[2021-01-05] MEDS ORDERED: NALOXONE 0.4 MG/ML 1 ML VIAL IV PRN (22:58)
[2021-01-06] MEDS ORDERED: CYANOCOBALAMIN 500 MCG TAB ONE (09:00)
[2021-01-06] MEDS ORDERED: SODIUM CHLORIDE 0.9% 1,000 ML BAG ONE (09:00)
[2021-01-06] MEDS ORDERED: TAMSULOSIN 0.4 MG CAP.ER.24H PO ONE (09:00)
[2021-01-06] MEDS ORDERED: CYANOCOBALAMIN 500 MCG TAB PO SCH (09:00)
[2021-01-06] MEDS ORDERED: PANTOPRAZOLE 40 MG/10 ML VIAL IV SCH (09:00)
--- NOTE | 2021-01-06 10:25 | CT ---
EXAMINATION TYPE: CT brain wo con DATE OF EXAM: 01/06/2021 HISTORY: Fall injury, mental status change CT DLP: 1054.2 mGycm. Automated Exposure Control for Dose Reduction was Utilized. TECHNIQUE: CT scan of the head is performed without contrast. COMPARISON: None. FINDINGS: There is no acute intracranial hemorrhage or midline shift identified. There is mild to m oderate diffuse ventricular and sulcal prominence consistent with diffuse age-related cerebral atroph y. There is moderate low-attenuation in the periventricular white matter consistent with chronic sma ll vessel ischemic change. The globes are intact and the visualized sinuses are clear. The calvari um is intact IMPRESSION: No acute intracranial hemorrhage or midline shift. There is [id number] diffuse ag e-related cerebral atrophy and moderate chronic small vessel ischemic change noted.
--- NOTE | 2021-01-06 10:37 | P.HPIM ---
History of Present Illness H&P Date: 01/06/21 HISTORY OF PRESENT ILLNESS This is a 75-year-old male patient of Dr. Florentino with past medical history of benign prostatic hypertrophy, recently hospitalized December 08 through December 13 and treated for recurrent falls with impaired balance and gait with chronic low back pain secondary to degenerative disc disease at L4-5 and mild canal stenosis on the severe right and moderate left neural foraminal stenosis on MRI and patient was seen by orthopedic spine. Patient was also treated for prostatism and was discharged to [facility] for subacute rehab. Patient states he spent 30 days at rehab and was discharged home to his apartment. Patient states that he completed antibiotics 1-2 days ago and then developed diarrhea for the past 2 days about 2 times per day. He denies any blood in his stool and denies any abdominal pain but has some cramping. He was worried about falling and contacted his sister who also has an apartment in the same building. He states he normally uses a walker and yesterday he started using a wheelchair. He states he does not do any cooking at home for meals are made for him and he warms them up from the freezer. He denies having any chest pain or shortness of breath. Patient has not had any diarrhea since admission. Patient was brought into [facility] emergency center for evaluation. Blood pressure 97/61, afebrile, heart rate 87, pulse ox 94% on room air. Patient received 1/2 L of IV fluid with improvement of his blood pressure WBC 13.6, hemoglobin 14, platelet count 250. Sodium 135, potassium 5.3, chloride 107, CO2 21, BUN 16 and creatinine 0.78, blood sugar 111. C. difficile toxin was negative. Coronavirus PCR not detected. Patient was noted to have some compulsive stuttering-type speech as well as difficulty completing finger to nose test. Consult was added for neurology and CAT scan of the brain. PT, OT and social work specialist consults in place. REVIEW OF SYSTEMS Constitutional: No fever, no chills, no night sweats. No weight change. Reports weakness, fatigue or lethargy. No daytime sleepiness. EENT: No headache. No blurred vision or double vision, no loss of vision. No loss of Hearing, no ringing in the ears, no dizziness. No nasal drainage or congestion. No epistaxis. No sore throat. Lungs: No shortness of breath, noted cough, no sputum production. No wheezing. Cardiovascular: No chest pain, no lower extremity edema. No palpitations. No paroxysmal nocturnal dyspnea. No orthopnea. No lightheadedness or dizziness. No syncopal episodes. Abdominal: No abdominal pain. No nausea, vomiting. Reports diarrhea. No constipation. No bloody or tarry stools.. Reports loss of appetite. Genitourinary: No dysuria, increased frequency, urgency. No urinary retention. Musculoskeletal: No myalgias. Reports muscle weakness, reports gait dysfunction, no frequent falls. No back pain. No neck pain. Integumentary: No wounds, no lesions. No rash or pruritus. No unusual bruising. No change in hair or nails. Neurologic: No aphasia. No facial droop. No change in mentation. No head injury. No headache. No paralysis. No paresthesia. Psychiatric: No depression. No anxiety. No mood swings. Endocrine: No abnormal blood sugars. SOCIAL HISTORY Patient was a smoker of one to one and half packs per day for 18-20 years and quit 5 years ago. He states he quit drinking alcohol 45 years ago. He has never been . He lives in her apartment. FAMILY HISTORY Mother at age 78 with history of CVA coronary artery disease and osteoarthritis. Father at age 78 from COPD. Patient has one brother he is alive but patient does not know his medical history. Patient has one sister that has had a myocardial infarction and osteoarthritis. He does not have any children. PHYSICAL EXAMINATION Gen: This is a 75-year-old male. He is resting in bed and appears to be comfortable at rest. HEENT: Head is atraumatic, normocephalic. Pupils equal, round. Sclerae is anicteric. NECK: Supple. No JVD. No lymphadenopathy. No thyromegaly. LUNGS: Clear to auscultation. No wheezes or rhonchi. No intercostal retractions. HEART: Regular rate and rhythm. No murmur. ABDOMEN: Soft. Bowel sounds are present. No masses. No tenderness. EXTREMITIES: No pedal edema. No calf tenderness. NEUROLOGICAL: Patient is awake, alert and oriented x3. Cranial nerves 2 through 12 are grossly intact. Unable to comprehend finger to nose test. ASSESSMENT AND PLAN 1. Diarrhea most likely secondary to recent antibiotic use, C. difficile colitis has been ruled out. No further episodes of diarrhea. Continue to monitor closely. Continue IV fluids at 75 mL per hour. 2. Mild confusion, rule out CVA, consult with neurology and CAT scan of the brain. 3. Generalized weakness and debility with high risk for falls. PT, OT, social work specialist consult. 4. Benign prostatic hypertrophy. Continue Flomax 0.8 mg daily. 5. Recent treatment for urinary tract infection, patient completed course of antibiotics. 6. History of recurrent falls with chronic back pain with recent MRI showing degenerative disc disease at L4-5 and mild canal stenosis at the right side there and moderate left neural foraminal stenosis. Patient was previously seen by orthopedic spine. 7. GI prophylaxis. Pepcid oral daily. 8. DVT prophylaxis. Lovenox 40 mg daily 9. COVID-19 testing negative. Patient has been hospitalized during a pandemic. Patient will be admitted to the hospital for a minimum of 2 night stay. DISCHARGE PLAN To be determined. Most likely subacute rehab. PT, OT, social work.. Impression and plan of care have been directed as dictated by the signing physician. Nelda Temple nurse practitioner acting as scribe for signing physician. Past Medical History Past Medical History: Prostate Disorder Additional Past Medical History / Comment(s): Left Achilles tendon rupture 6-7 years ago. bph History of Any Multi-Drug Resistant Organisms: None Reported Past Surgical History: Hernia Repair, Tonsillectomy Additional Past Surgical History / Comment(s): left forearm compound fracture surgical alignment and casting Past Anesthesia/Blood Transfusion Reactions: Postoperative Nausea & Vomiting (PONV) Past Psychological History: No Psychological Hx Reported Smoking Status: Former smoker Past Alcohol Use History: None Reported Past Drug Use History: None Reported - Past Family History Mother Family Medical History: No Reported History, Coronary Artery Disease (CAD) Father Family Medical History: No Reported History Medications and Allergies Home Medications Medication Instructions Recorded Confirmed Type Ergocalciferol [Vitamin D2 (1250 1,250 mcg PO WE 12/08/20 01/05/21 History Mcg = 12742 Iu)] Meloxicam [Mobic] 15 mg PO DAILY 12/08/20 01/05/21 History Tamsulosin [Flomax] 0.8 mg PO DAILY #60 cap 12/13/20 01/05/21 Rx Melatonin 9 mg PO HS 01/05/21 01/05/21 History Omeprazole 20 mg PO HS 01/05/21 01/05/21 History Vitamin B-12 250mcg 250 mcg PO Q12H 01/05/21 01/05/21 History Allergies Allergy/AdvReac Type Severity Reaction Status Date / Time ether AdvReac Confusion Verified 01/05/21 22:02 Physical Exam Vitals: Vital Signs Temp Pulse Pulse Resp BP BP Pulse Ox 01/06/21 07:00 97.7 F 66 16 109/66 95 01/06/21 03:36 98.1 F 74 18 119/62 96 01/05/21 23:11 68 18 106/60 94 L 01/05/21 20:44 98.4 F 87 16 97/61 94 L Intake and Output 01/05/21 01/06/21 01/06/21 22:59 06:59 14:59 Output Total 125 Balance -125 Output: Urine 125 Other: # Voids 1 Weight 92.533 kg 92.533 kg Results CBC & Chem 7: 01/05/21 21:17 01/05/21 21:17 Labs: Abnormal Lab Results - Last 24 Hours (Table) 01/05/21 01/05/21 Range/Units 21:17 21:17 WBC 13.6 H (3.8-10.6) k/uL Neutrophils # 10.7 H (1.3-7.7) k/uL Sodium 135 L (137-145) mmol/L Potassium 5.3 H (3.5-5.1) mmol/L Carbon Dioxide 21 L (22-30) mmol/L Glucose 111 H (74-99) mg/dL Alkaline Phosphatase 36 L (38-126) U/L Thrombosis Risk Factor Assmnt - Choose All That Apply Any of the Below Risk Factors Present?: Yes Each Factor Represents 1 point: Obesity (BMI >25) Other Risk Factors: Yes Each Risk Factor Represents 3 Points: Age 75 years or older Other congenital or acquired thrombophilia - If yes, enter type in comment: No Thrombosis Risk Factor Assessment Total Risk Factor Score: 4 Thrombosis Risk Factor Assessment Level: Moderate Risk
--- NOTE | 2021-01-06 11:43 | P.CNNES ---
History of Present Illness Consult date: 01/06/21 Requesting physician: Nelda Temple Reason for Consult: altered mental status r/o cva History of Present Illness: This is a 75-year-old gentleman with medical history of recent history of urinary tract infection, history of recurrent falls with chronic back pain with lumbar spondylosis, and benign prostate hyperplasia presented emergency department on 01/05/2021 for diarrhea and fatigue. Neurology is consulted for a ltered mental status. The patient was initially diagnosed with recent urinary tract infection and has been on antibiotic for 10 days and that as a result he's been having diarrhea for the last 2-3 days. He has completed his antibiotics about 1-2 days ago. Patient was in rehab [facility] then was discharged home to his apartment. Per the patient's nurse she stated that the patient was not confused and was responsive to all questions appropriately. Per the primary team is seems the patient had the just a task where he was not following appropriately of doing finger to nose and they asked felt that the patient was lip talking. Per the nurse that she spoke with the patient's sister and that she stated that the patient was confused couple month ago and she only gave one example the mistaken his a cell phone for the remote control but not other new confusion. I attempted to contact the patient's sister but no response. Also per the patient he says that he talks fast and that's is normal base and per the nurse practitioners she had seen him in the past about a month ago and she did s joyner that the he's a fast speaker. It does not seem the patient has any history of seizures. He has not had any seizure-like activity in our facility. She denies of any weakness, numbness, visual disturbance, headache, difficulty swallowing. Patient is on home medication of melatonin 9 mg daily at bedtime, vitamin D2, appears old, Flomax, vitamin B12 250 g every 12 hours. Patient had MRI of the lumbar spine on 12/10/2020 and it was reported as is degenerative changes, most severe at L4-L5. There is mild canal stenosis and severe right and moderate left neuroforaminal stenosis. In the body they reported it is mentioned that the patient has severe right and moderate left neuroforaminal stenosis over the L4-L5 and moderate bilateral neuro from stenosis over L5-S1. Patient was seen by orthopedic in the past and was notified by primary team that it was recommended medical management. Because of the fall he usually uses a walker and started using a wheelchair. His vitamin B12 is 240 on 12/09/2020 and his TSH is 0.660. Some other workup in the hospital consisted of: Initial vital signs his blood pressure of 97/61, heart rate of 87, respiratory of 16, temperature of 98.4 Fahrenheit oral pulse ox is 94% room air. Initial blood cells 13.6 thousand Sodium is 135, creatinine is 0.78, serum glucoses 111, calcium is 9.0, AST of 48 ALT of 26 Cornea virus PCR is noninfected C. diff is negative CT of the head is reported as no acute intracranial hemorrhage or midline shift. There is mild to moderate diffuse age-related cerebral atrophy and moderate chronic small vessel ischemic changes noted. Review of Systems Review of system: The 12 point system was reviewed and apparent positive and negative per HPI. Past Medical History Past Medical History: Prostate Disorder Additional Past Medical History / Comment(s): Left Achilles tendon rupture 6-7 years ago. bph History of Any Multi-Drug Resistant Organisms: None Reported Past Surgical History: Hernia Repair, Tonsillectomy Additional Past Surgical History / Comment(s): left forearm compound fracture surgical alignment and casting Past Anesthesia/Blood Transfusion Reactions: Postoperative Nausea & Vomiting (P ONV) Past Psychological History: No Psychological Hx Reported Smoking Status: Former smoker Past Alcohol Use History: None Reported Past Drug Use History: None Reported - Past Family History Mother Family Medical History: No Reported History, Coronary Artery Disease (CAD) Father Family Medical History: No Reported History Medications and Allergies Home Medications Medication Instructions Recorded Confirmed Type Ergocalciferol [Vitamin D2 (1250 1,250 mcg PO WE 12/08/20 01/05/21 History Mcg = [id number] Iu)] Meloxicam [Mobic] 15 mg PO DAILY 12/08/20 01/05/21 History Tamsulosin [Flomax] 0.8 mg PO DAILY #60 cap 12/13/20 01/05/21 Rx Melatonin 9 mg PO HS 01/05/21 01/05/21 History Omeprazole 20 mg PO HS 01/05/21 01/05/21 History Vitamin B-12 250mcg 250 mcg PO Q12H 01/05/21 01/05/21 History Allergies Allergy/AdvReac Type Severity Reaction Status Date / Time ether AdvReac Confusion Verified 01/05/21 22:02 Physical Examination - Vital Signs Vital Signs: Vital Signs Temp Pulse Pulse Resp BP BP Pulse Ox 01/06/21 07:00 97.7 F 66 16 109/66 95 01/06/21 03:36 98.1 F 74 18 119/62 96 01/05/21 23:11 68 18 106/60 94 L 01/05/21 20:44 98.4 F 87 16 97/61 94 L Intake and Output 01/05/21 01/06/21 01/06/21 22:59 06:59 14:59 Output Total 275 Balance -275 Output: Urine 275 Other: # Voids 1 Weight 92.533 kg 92.533 kg GENERAL: The patient is lying in bed and is not in acute distress. CHEST: The heart rate is regular rate rhythm. No murmurs to auscultation. No carotid bruit bilaterally. LUNG: Clear to auscultation bilaterally no wheezing noted throughout. Not labored breathing. ABDOMEN/GI: Bowel sounds present in all 4 quadrants. No tenderness to palpation throughout. NEUROLOGICAL: Higher mental function: The patient is awake, alert, oriented to self, place and time. He was able to name objects (watch, glasses, pen). He was able to tell name of current President and stated the social services director is a woman as well [place] governor. Patient is following simple commands appropriately but at one command with finger to nose I had to show him to perform it on left. No aphasia and no neglect. Cranial nerves: The pupils are round, equal and reactive to light and accommodation. Visual casey are full to confrontation throughout. Extraocular movement is intact no nystagmus is noted. Facial sensation is normal to touch throughout. The facial strength is normal throughout. Hearing is moderately decreased bilaterally to hand rub. Tongue is midline and moved [id number] without any difficulty. No dysarthria is noted. He does not have denture of upper and word come out as lip-voiced but no dysarthric or aphasic. Shoulder shrug is normal bilaterally. Motor: The strength is 5 over 5 throughout. Normal tone and bulk. Cerebellum: Normal finger to nose bilaterally . Sensation: Sensation is normal to touch throughout. Reflexes (right/left): 2+ throughout uppers and lowers are 1+. Plantars are mute bilaterally. Results - Laboratory Findings CBC and BMP: 01/05/21 21:17 01/05/21 21:17 Abnormal Lab Findings: Abnormal Labs 01/05/21 10 21:17 21:17 WBC 13.6 H Neutrophils # 10.7 H Sodium 135 L Potassium 5.3 H Carbon Dioxide 21 L Glucose 111 H Alkaline Phosphatase 36 L Assessment and Plan Assessment: * Very Rare difficulty of following task (as well sister felt he had confusion over past few months but did not give supportive evidence): Rule out underlying cognitive impairement/dementia or any pseudo-dementia. Underlying Low vitamin B12 can cause confusion (his Vitamin B12 240 on 12/09/2020) * Low vitamin B12 (B12 240 on 12/09/2020). * Recurrent falls with Lumbosacral spondylosis most severe over (L4-L5: severe over right and moderate left. While moderate over L5-S1) * Recent diarrhea for the last 2-3 days due to antibiotic use * Recent history of urinary tract infection and was on antibiotic for 10 days and he completed his antibiotic about once 2 days ago * Benign prostate hyperplasia Plan: * I don't feel he has a stroke. I don't think MRI or routine EEG is warranted as inpatient and would recommend as an outpatient unless the primary team feels otherwise. I recommend further neurocognitive assessment as an outpatient. * I ordered folate and HbA1c. * I will increase the vitamin B 12 from 250 mcg every 12 hours to 1000 g daily. * Vitamin B12, TSH does not need to be repeated since the patient had a recent testing on 12/2020. * Patient needs dentures. He does not have aphasia or dysarthria. * PT and OT are consulted * We'll defer the rest of the medical management to primary team. * Patient needs to follow-up with orthopedic team as an outpatient regarding his lumbosacral spondylosis. * Upon discharge the patient needs to follow-up with a neurologist in outpatient within 1-2 weeks. * I don't recommend the patient to live by himself because of these falls and possibly he needs supervision long-term from neurological perspective. The plan is discussed with the patient's primary team and his nurse. I attempted to contact his sister but no response. Thank you for the consultation Vivek Scott M.D. Neuro-hospitalist Time with Patient: Greater than 30
[2021-01-06] MEDS: SODIUM CHLORIDE 0.9% 1,000 ML IV SCH ×6 (13:52→20:12)
[2021-01-06] MEDS: TAMSULOSIN 0.4 MG CAP.ER.24H PO SCH (13:53)
[2021-01-06 14:08] VITALS: BMI 26.2
[2021-01-06] MEDS: MELATONIN 3 MG TABLET PO SCH (20:09)
[2021-01-06] MEDS: PANTOPRAZOLE 40 MG TABLET PO SCH (20:09)
[2021-01-07] MEDS: SODIUM CHLORIDE 0.9% 1,000 ML IV SCH ×2 (06:15→08:21)
[2021-01-07] MEDS: CYANOCOBALAMIN 500 MCG TAB PO SCH (08:21)
[2021-01-07] MEDS: FAMOTIDINE 20 MG TAB PO SCH (08:21)
[2021-01-07] MEDS: TAMSULOSIN 0.4 MG CAP.ER.24H PO SCH (08:22)
[2021-01-07] MEDS: ENOXAPARIN 40 MG/0.4 ML SYRINGE SQ SCH (08:22)
--- NOTE | 2021-01-07 10:38 | P.PN ---
Subjective Progress Note Date: 01/07/21 HISTORY OF PRESENT ILLNESS This is a 75-year-old male patient of Dr. Florentino with past medical history of benign prostatic hypertrophy, recently hospitalized December 08 through and treated for recurrent falls with impaired balance and gait with chronic low back pain secondary to degenerative disc disease at L4-5 and mild canal stenosis on the severe right and moderate left neural foraminal stenosis on MRI and patient was seen by orthopedic spine. Patient was also treated for prostatism and was discharged to [facility] for subacute rehab. Patient states he spent 30 days at rehab and was discharged home to his apartment. Patient states that he completed antibiotics 1-2 days ago and then developed diarrhea for the past 2 days about 2 times per day. He denies any blood in his stool and denies any abdominal pain but has some cramping. He was worried about falling and contacted his sister who also has an apartment in the same building. He states he normally uses a walker and yesterday he started using a wheelchair. He states he does not do any cooking at home for meals are made for him and he warms them up from the freezer. He denies having any chest pain or shortness of breath. Patient has not had any diarrhea since admission. Patient was brought into [facility] emergency center for evaluation. Blood pressure 97/61, afebrile, heart rate 87, pulse ox 94% on room air. Patient received 1/2 L of IV fluid with improvement of his blood pressure WBC 13.6, hemoglobin 14, platelet count 250. Sodium 135, potassium 5.3, chloride 107, CO2 21, BUN 16 and creatinine 0.78, blood sugar 111. C. difficile toxin was negative. Coronavirus PCR not detected. Patient was noted to have some compulsive stuttering-type speech as well as difficulty completing finger to nose test. Consult was added for neurology and CAT scan of the brain. PT, OT and social service technician consults in place. 01/07: Patient has been seen by neurology and he does not think the patient has had a stroke and holding on any MRI or EEG not warranted at this time and Patient can have outpatient workup. Folate level and hemoglobin A1c was ordered and he increase vitamin B12 to 1000 g daily. He recommended patient needs dentures and he does not have any aphasia or dysarthria. Patient had one bowel movement this morning and no episodes of diarrhea. He is continued on IV fluids. He has been up in a chair. He has been afebrile, heart rate 58, blood pressure 107/61, pulse ox 94% on room air. Repeat blood work ordered for tomorrow. Patient has more confusion today. Anticipate need for subacute rehab REVIEW OF SYSTEMS Constitutional: No fever, no chills, no night sweats. No weight change. Reports weakness, fatigue or lethargy. No daytime sleepiness. EENT: No headache. No blurred vision or double vision, no loss of vision. No dizziness. No nasal drainage or congestion. No epistaxis. No sore throat. Lungs: No shortness of breath, noted cough, no sputum production. No wheezing. Cardiovascular: No chest pain, no lower extremity edema. No palpitations. No paroxysmal nocturnal dyspnea. No orthopnea. No lightheadedness or dizziness. No syncopal episodes. Abdominal: No abdominal pain. No nausea, vomiting. Reports diarrhea. No constipation. No bloody or tarry stools.. Reports loss of appetite. Genitourinary: No dysuria, increased frequency, urgency. No urinary retention. Musculoskeletal: No myalgias. Reports muscle weakness, reports gait dysfunction, no frequent falls. No back pain. No neck pain. Integumentary: No wounds, no lesions. No rash or pruritus. No unusual bruising. No change in hair or nails. Neurologic: No aphasia. No facial droop. Noted change in mentation. No head injury. No headache. No paralysis. No paresthesia. Psychiatric: No depression. No anxiety. No mood swings. Endocrine: No abnormal blood sugars. PHYSICAL EXAMINATION Gen: This is a 75-year-old male. He is resting in bed and appears to be comfortable at rest. HEENT: Head is atraumatic, normocephalic. Pupils equal, round. Sclerae is anicteric. NECK: Supple. No JVD. No lymphadenopathy. No thyromegaly. LUNGS: Clear to auscultation. No wheezes or rhonchi. No intercostal retractions. HEART: Regular rate and rhythm. No murmur. ABDOMEN: Soft. Bowel sounds are present. No masses. No tenderness. EXTREMITIES: No pedal edema. No calf tenderness. NEUROLOGICAL: Patient is awake, alert and oriented to person. Cranial nerves 2 through 12 are grossly intact. Unable to comprehend finger to nose test. ASSESSMENT AND PLAN 1. Diarrhea most likely secondary to recent antibiotic use, C. difficile colitis has been ruled out. No further episodes of diarrhea. Continue to monitor closely. Continue IV fluids at 75 mL per hour. 2. Mild confusion, rule out CVA, consult with neurology and CAT scan of the brain. 3. Generalized weakness and debility with high risk for falls. PT, OT, social service technician consult. 4. Benign prostatic hypertrophy. Continue Flomax 0.8 mg daily. 5. Recent treatment for urinary tract infection, patient completed course of antibiotics. 6. History of recurrent falls with chronic back pain with recent MRI showing degenerative disc disease at L4-5 and mild canal stenosis at the right side ther e and moderate left neural foraminal stenosis. Patient was previously seen by orthopedic spine. 7. GI prophylaxis. Pepcid oral daily. 8. DVT prophylaxis. Lovenox 40 mg daily 9. COVID-19 testing negative. DISCHARGE PLAN To be determined. Most likely subacute rehab. PT, OT, social work. Impression and plan of care have been directed as dictated by the signing physician. Nelda Temple nurse practitioner acting as scribe for signing physician. Objective - Vital Signs Vital signs: Vital Signs Temp 98.1 F 01/07/21 07:00 Pulse 58 L 01/07/21 07:00 Resp 16 01/07/21 07:00 BP 107/61 01/07/21 07:00 Pulse Ox 94 L 01/07/21 07:00 Intake & Output 01/06/21 01/07/21 01/07/21 18:59 06:59 18:59 Output Total 550 Balance -550 Weight 92.533 kg Output: Urine 550 Other: # Voids 1 3 0 # Bowel Movements 1 - Labs CBC & Chem 7: 01/05/21 21:17 01/05/21 21:17
--- NOTE | 2021-01-07 11:46 | P.PN ---
Subjective Progress Note Date: 01/07/21 The patient is seen at bedside and he feels about the same since yesterday. Denies of any new neurological deficits. Objective - Vital Signs Vital signs: Vital Signs Temp 98.1 F 01/07/21 07:00 Pulse 58 L 01/07/21 07:00 Resp 16 01/07/21 08:00 BP 107/61 01/07/21 07:00 Pulse Ox 94 L 01/07/21 07:00 Intake & Output 01/06/21 01/07/21 01/07/21 18:59 06:59 18:59 Intake Total 240 Output Total 550 Balance -550 240 Weight 92.533 kg Intake: Oral 240 Output: Urine 550 Other: Voiding Method Urinal # Voids 1 3 0 # Bowel Movements 1 2 - Exam GENERAL: The patient is lying in bed and is not in acute distress. NEUROLOGICAL: Higher mental function: The patient is awake, alert, oriented to self, place and time. He was able to name objects (watch, glasses, pen). He was able to tell name of current President and stated the automobile service station attendant is a woman as well [place] governor. Patient is following simple commands appropriately but at one command with finger to nose I had to show him to perform it on left. No aphasia and no neglect. Cranial nerves: The pupils are round, equal and reactive to light and accommodation. Visual casey are full to confrontation throughout. Extraocular movement is intact no nystagmus is noted. Facial sensation is normal to touch throughout. The facial strength is normal throughout. Hearing is moderately decreased bilaterally to hand rub. Tongue is midline and moved [id number] without any difficulty. No dysarthria is noted. He does not have denture of upper and word come out as lip-voiced but no dysarthric or aphasic. Shoulder shrug is normal bilaterally. Motor: The strength is 5 over 5 throughout. Normal tone and bulk. Cerebellum: Normal finger to nose bilaterally . Sensation: Sensation is normal to touch throughout. Reflexes (right/left): 2+ throughout uppers and lowers are 1+. Plantars are mute bilaterally. WORK-UP: [place] virus PCR is noninfected C. diff is negative HbA1c: 4.9. Serum Folate: 14.8 CT of the head is reported as no acute intracranial hemorrhage or midline shift. There is mild to moderate diffuse age-related cerebral atrophy and moderate chronic small vessel ischemic changes noted. - Labs CBC & Chem 7: 01/05/21 21:17 01/05/21 21:17 Assessment and Plan Assessment: * Very Rare difficulty of following task (as well sister felt he had confusion over past few months but did not give supportive evidence): Rule out underlying cognitive impairement/dementia or any pseudo-dementia. Underlying Low vitamin B12 can cause confusion (his Vitamin B12 240 on 12/09/2020) * Low vitamin B12 (B12 240 on 12/09/2020). * Recurrent falls with Lumbosacral spondylosis most severe over (L4-L5: severe over right and moderate left. While moderate over L5-S1) * Recent diarrhea for the last 2-3 days due to antibiotic use * Recent history of urinary tract infection and was on antibiotic for 10 days and he completed his antibiotic about once 2 days ago * Benign prostate hyperplasia Plan: * I don't feel he has a stroke. I don't think MRI or routine EEG is warranted as inpatient and would recommend as an outpatient unless the primary team feels otherwise. I recommend further neurocognitive assessment as an outpatient. * Continue Vitamin B12 1000 g daily. * Vitamin B12, TSH does not need to be repeated since the patient had a recent testing on 12/2020. * Patient needs dentures. He does not have aphasia or dysarthria. * PT and OT are consulted * We'll defer the rest of the medical management to primary team. * Patient needs to follow-up with orthopedic team as an outpatient regarding his lumbosacral spondylosis. * Upon discharge the patient needs to follow-up with a neurologist in outpatient within 1-2 weeks. * I don't recommend the patient to live by himself because of these falls and possibly he needs supervision long-term from neurological perspective. The plan is discussed with the primary team (nurse practioner). There is no further neurological work-up. Neurology will sign off. Please reconsult if needed. Vivek Scott M.D. Neuro-hospitalist Time with Patient: Less than 30
[2021-01-07] MEDS: MELATONIN 3 MG TABLET PO SCH (20:32)
[2021-01-07] MEDS: PANTOPRAZOLE 40 MG TABLET PO SCH (20:32)
[2021-01-08] MEDS: SODIUM CHLORIDE 0.9% 1,000 ML IV SCH (03:04)
[2021-01-08] MEDS: FAMOTIDINE 20 MG TAB PO SCH (08:32)
[2021-01-08] MEDS: ENOXAPARIN 40 MG/0.4 ML SYRINGE SQ SCH (08:32)
[2021-01-08] MEDS: CYANOCOBALAMIN 500 MCG TAB PO SCH (08:32)
[2021-01-08] MEDS: TAMSULOSIN 0.4 MG CAP.ER.24H PO SCH (08:32)
[2021-01-08 08:34] LABS: HCT 39.3 % (39.6-50.0); HGB 12.9 g/dL (13.0-17.0); MCH 31.3 pg (27.0-32.0); MCHC 32.8 g/dL (32.0-37.0); MCV 95.4 fL (80.0-97.0); Mean Platelet Volume 10.3 fL (9.5-12.2); Platelet Count 226 X 10*3/uL (140-440); RBC 4.12 X 10*6/uL (4.40-5.60)
[2021-01-08 09:05] LABS: African American GFR (CKD) 110.7 (60.0-200.0); Albumin 3.5 g/dL (3.8-4.9); Albumin/Globulin Ratio 1.8 (1.60-3.17); Anion Gap 11.2 mmol/L (4.00-12.00); BUN/Creat Ratio 23.6 Ratio (12.00-20.00); Blood Urea Nitrogen 15.2 mg/dL (9.0-27.0); Calcium 8.8 mg/dL (8.7-10.3); Carbon Dioxide 22.4 mmol/L (21.6-31.8); Globulin 1.9 g/dL (1.6-3.3); Non-African American GFR(CKD) 95.5 (60.0-200.0); Potassium 4.1 mmol/L (3.5-5.5); Total Bilirubin 1.1 mg/dL (0.30-1.20); Total Protein 5.4 g/dL (6.2-8.2)
--- NOTE | 2021-01-08 13:51 | P.PN ---
Subjective Progress Note Date: 01/08/21 HISTORY OF PRESENT ILLNESS This is a 75-year-old male patient of Dr. Florentino with past medical history of benign prostatic hypertrophy, recently hospitalized December 08 through and treated for recurrent falls with impaired balance and gait with chronic low back pain secondary to degenerative disc disease at L4-5 and mild canal stenosis on the severe right and moderate left neural foraminal stenosis on MRI and patient was seen by orthopedic spine. Patient was also treated for prostatism and was discharged to [facility] for subacute rehab. Patient states he spent 30 days at rehab and was discharged home to his apartment. Patient states that he completed antibiotics 1-2 days ago and then developed diarrhea for the past 2 days about 2 times per day. He denies any blood in his stool and denies any abdominal pain but has some cramping. He was worried about falling and contacted his sister who also has an apartment in the same building. He states he normally uses a walker and yesterday he started using a wheelchair. He states he does not do any cooking at home for meals are made for him and he warms them up from the freezer. He denies having any chest pain or shortness of breath. Patient has not had any diarrhea since admission. Patient was brought into [facility] emergency center for evaluation. Blood pressure 97/61, afebrile, heart rate 87, pulse ox 94% on room air. Patient received 1/2 L of IV fluid with improvement of his blood pressure WBC 13.6, hemoglobin 14, platelet count 250. Sodium 135, potassium 5.3, chloride 107, CO2 21, BUN 16 and creatinine 0.78, blood sugar 111. C. difficile toxin was negative. Coronavirus PCR not detected. Patient was noted to have some compulsive stuttering-type speech as well as difficulty completing finger to nose test. Consult was added for neurology and CAT scan of the brain. PT, OT and social work therapist consults in place. 01/07: Patient has been seen by neurology and he does not think the patient has had a stroke and holding on any MRI or EEG not warranted at this time and Patient can have outpatient workup. Folate level and hemoglobin A1c was ordered and he increase vitamin B12 to 1000 g daily. He recommended patient needs dentures and he does not have any aphasia or dysarthria. Patient had one bowel movement this morning and no episodes of diarrhea. He is continued on IV fluids. He has been up in a chair. He has been afebrile, heart rate 58, blood pressure 107/61, pulse ox 94% on room air. Repeat blood work ordered for tomorrow. Patient has more confusion today. Anticipate need for subacute rehab 01/08: Patient apparently had a fall last evening, details are not readily available. Patient is currently awake and alert and oriented. Neurology has signed off. Patient has been afebrile, heart rate 64, blood pressure 95/51, pulse ox 96% on room air. Repeat blood work reveals WBC 9.7, hemoglobin 12.9, platelet count 226. Electrolytes are all normal including sodium 142 and potassium 4.2. Creatinine 0.6. Liver function tests are normal. Albumin 3.5. Folate 14.8. Physical therapy is recommended home care or subacute rehab. REVIEW OF SYSTEMS Constitutional: No fever, no chills, no night sweats. No weight change. Reports weakness, fatigue or lethargy. No daytime sleepiness. EENT: No headache. No blurred vision or double vision, no loss of vision. No dizziness. No nasal drainage or congestion. No epistaxis. No sore throat. Lungs: No shortness of breath, noted cough, no sputum production. No wheezing. Cardiovascular: No chest pain, no lower extremity edema. No palpitations. No paroxysmal nocturnal dyspnea. No orthopnea. No lightheadedness or dizziness. No syncopal episodes. Abdominal: No abdominal pain. No nausea, vomiting. Reports diarrhea. No constipation. No bloody or tarry stools. Reports loss of appetite. Genitourinary: No dysuria, increased frequency, urgency. No urinary retention. Musculoskeletal: No myalgias. Reports muscle weakness, reports gait dysfuncti on, reported fall. No back pain. No neck pain. Integumentary: No wounds, no lesions. No rash or pruritus. No unusual bruising. No change in hair or nails. Neurologic: No aphasia. No facial droop. Noted change in mentation. No head injury. No headache. No paralysis. No paresthesia. Psychiatric: No depression. No anxiety. No mood swings. Endocrine: No abnormal blood sugars. PHYSICAL EXAMINATION Gen: This is a 75-year-old male. He is resting in bed and appears to be comfortable at rest. HEENT: Head is atraumatic, normocephalic. Pupils equal, round. Sclerae is anicteric. NECK: Supple. No JVD. No lymphadenopathy. No thyromegaly. LUNGS: Clear to auscultation. No wheezes or rhonchi. No intercostal retractions. HEART: Regular rate and rhythm. No murmur. ABDOMEN: Soft. Bowel sounds are present. No masses. No tenderness. EXTREMITIES: No pedal edema. No calf tenderness. NEUROLOGICAL: Patient is awake, alert and oriented 3. Cranial nerves 2 through 12 are grossly intact. Unable to comprehend finger to nose test. ASSESSMENT AND PLAN 1. Diarrhea most likely secondary to recent antibiotic use, C. difficile co litis has been ruled out. No further episodes of diarrhea. Continue to monitor closely. Discontinue IV fluids. 2. Mild confusion, rule out CVA, consult with neurology and CAT scan of the brain. 3. Generalized weakness and debility with high risk for falls. PT, OT, social work therapist consult. 4. Benign prostatic hypertrophy. Continue Flomax 0.8 mg daily. 5. Recent treatment for urinary tract infection, patient completed course of antibiotics. 6. History of recurrent falls with chronic back pain with recent MRI showing degenerative disc disease at L4-5 and mild canal stenosis at the right side there and moderate left neural foraminal stenosis. Patient was previously seen by orthopedic spine. 7. GI prophylaxis. Pepcid oral daily. 8. DVT prophylaxis. Lovenox 40 mg daily 9. COVID-19 testing negative. DISCHARGE PLAN Subacute rehab. PT, OT, social work. Impression and plan of care have been directed as dictated by the signing physician. Nelda Temple nurse practitioner acting as scribe for signing physician. Objective - Vital Signs Vital signs: Vital Signs Temp 97.9 F 01/08/21 07:00 Pulse 64 01/08/21 07:00 Resp 18 01/08/21 07:00 BP 95/51 01/08/21 07:00 Pulse Ox 96 01/08/21 07:00 Intake & Output 01/07/21 01/08/21 01/08/21 18:59 06:59 18:59 Intake Total 600 300 180 Output Total 100 100 Balance 500 200 180 Intake: Oral 600 300 180 Output: Urine 100 100 Other: Voiding Method Urinal Urinal Urinal Diaper Diaper # Voids 0 1 # Bowel Movements 2 1 - Labs CBC & Chem 7: 01/08/21 05:11 01/08/21 05:11 Labs: Abnormal Lab Results - Last 24 Hours (Table) 01/08/21 01/08/21 Range/Units 05:11 05:11 RBC 4.12 L (4.40-5.60) X 10*6/uL Hgb 12.9 L (13.0-17.0) g/dL Hct 39.3 L (39.6-50.0) % BUN/Creatinine Ratio 23.60 H (12.00-20.00) Ratio Total Protein 5.4 L (6.2-8.2) g/dL Albumin 3.5 L (3.8-4.9) g/dL
[2021-01-08 14:24] LABS: Appearance,Urine Clear (Clear); Bilirubin,Urine Negative (Negative); Blood,Urine Negative (Negative); Color,Urine Yellow; Glucose,Urine (UA) Negative (Negative); Ketones,Urine Negative (Negative); Leukocyte Esterase,Urine Negative (Negative); Nitrite,Urine Negative (Negative); Protein,Urine Negative (Negative); Specific Gravity,Urine 1.014 (1.001-1.035); Urobilinogen,Urine <2.0 mg/dL (<2.0)
[2021-01-08] MEDS: PANTOPRAZOLE 40 MG TABLET PO SCH (20:51)
[2021-01-08] MEDS: MELATONIN 3 MG TABLET PO SCH (20:51)
[2021-01-09 07:21] VITALS: BP 109/65; PULSE 66; RESP 18; TEMP 98.1
[2021-01-09] MEDS: CYANOCOBALAMIN 500 MCG TAB PO SCH (08:03)
[2021-01-09] MEDS: TAMSULOSIN 0.4 MG CAP.ER.24H PO SCH (08:03)
[2021-01-09] MEDS: ENOXAPARIN 40 MG/0.4 ML SYRINGE SQ SCH (08:03)
[2021-01-09] MEDS: FAMOTIDINE 20 MG TAB PO SCH (08:03)
[2021-01-09] MEDS ORDERED: SODIUM CHLORIDE 0.9% 1,000 ML IV ONE (11:03)
--- NOTE | 2021-01-09 11:08 | P.DS ---
Providers Date of admission: 01/07/21 08:55 Expected date of discharge: 01/09/21 Attending physician: Deneen Bell MD Consults: 01/06/21 08:57 Consult Physician Routine Consulting Provider: Vivek Scott Consult Reason/Comments: AMS, r/o cva Do you want consulting provider notified?: Yes [facility] care [facility] Course: HISTORY OF PRESENT ILLNESS This is a 75-year-old male patient of Dr. Florentino with past medical history of benign prostatic hypertrophy, recently hospitalized December 08 through December 13 and treated for recurrent falls with impaired balance and gait with chronic low back pain secondary to degenerative disc disease at L4-5 and mild canal stenosis on the severe right and moderate left neural foraminal stenosis on MRI and patient was seen by orthopedic spine. Patient was also treated for prostatism and was discharged to [facility] for subacute rehab. Patient states he spent 30 days at rehab and was discharged home to his apartment. Patient states that he completed antibiotics 1-2 days ago and then developed diarrhea for the past 2 days about 2 times per day. He denies any blood in his stool and denies any abdominal pain but has some cramping. He was worried about falling and contacted his sister who also has an apartment in the same building. He states he normally uses a walker and yesterday he started using a wheelchair. He states he does not do any cooking at home for meals are made for him and he warms them up from the freezer. He denies having any chest pain or shortness of breath. Patient has not had any diarrhea since admission. Patient was brought into [facility] emergency center for evaluation. Blood pressure 97/61, afebrile, heart rate 87, pulse ox 94% on room air. Patient received 1/2 L of IV fluid with improvement of his blood pressure WBC 13.6, hemoglobin 14, platelet count 250. Sodium 135, potassium 5.3, chloride 107, CO2 21, BUN 16 and creatinine 0.78, blood sugar 111. C. difficile toxin was negative. Coronavirus PCR not detected. Patient was noted to have some compulsive stuttering-type speech as well as difficulty completing finger to nose test. Consult was added for neurology and CAT scan of the brain. PT, OT and foster care social worker consults in place. 01/07: Patient has been seen by neurology and he does not think the patient has had a stroke and holding on any MRI or EEG not warranted at this time and Patient can have outpatient workup. Folate level and hemoglobin A1c was ordered and he increase vitamin B12 to 1000 g daily. He recommended patient needs dentures and he does not have any aphasia or dysarthria. Patient had one bowel movement this morning and no episodes of diarrhea. He is continued on IV fluids. He has been up in a chair. He has been afebrile, heart rate 58, blood pressure 107/61, pulse ox 94% on room air. Repeat blood work ordered for tomorrow. Patient has more confusion today. Anticipate need for subacute rehab 01/08: Patient apparently had a fall last evening, details are not readily available. Patient is currently awake and alert and oriented. Neurology has signed off. Patient has been afebrile, heart rate 64, blood pressure 95/51, pulse ox 96% on room air. Repeat blood work reveals WBC 9.7, hemoglobin 12.9, platelet count 226. Electrolytes are all normal including sodium 142 and potassium 4.2. Creatinine 0.6. Liver function tests are normal. Albumin 3.5. Folate 14.8. Physical therapy is recommended home care or subacute rehab. 01/09: Orthostatic vital signs were positive and 1 L of IV fluids will be given to the patient this morning. Patient has had no other falls, no lightheadedness or dizziness. He denies any chest pain or shortness of breath. Patient will be discharged to subacute rehab today in stable condition. ASSESSMENT AND PLAN 1. Diarrhea most likely secondary to recent antibiotic use, C. difficile coli tis has been ruled out. 2. Mild confusion, rule out CVA. 3. Generalized weakness and debility with high risk for falls. 4. Benign prostatic hypertrophy. 5. Recent treatment for urinary tract infection, patient completed course of antibiotics. 6. History of recurrent falls with chronic back pain with recent MRI showing degenerative disc disease at L4-5 and mild canal stenosis at the right side there and moderate left neural foraminal stenosis. 7. COVID-19 testing negative. DISCHARGE PLAN Subacute rehab at [facility]. Impression and plan of care have been directed as dictated by the signing physician. Nelda Temple nurse practitioner acting as scribe for signing physician. Patient Condition at Discharge: Good Plan - Discharge Summary Discharge Rx Participant: No New Discharge Prescriptions: No Action Meloxicam [Mobic] 15 mg PO DAILY Ergocalciferol [Vitamin D2 (1250 Mcg = 81673 Iu)] 1,250 mcg PO WE Tamsulosin [Flomax] 0.8 mg PO DAILY #60 cap Vitamin B-12 250mcg 250 mcg PO Q12H Omeprazole 20 mg PO HS Melatonin 9 mg PO HS Discharge Medication List Ergocalciferol [Vitamin D2 (1250 Mcg = 76580 Iu)] 1,250 mcg PO WE 12/08/20 [History] Meloxicam [Mobic] 15 mg PO DAILY 12/08/20 [History] Tamsulosin [Flomax] 0.8 mg PO DAILY #60 cap 12/13/20 [Rx] Melatonin 9 mg PO HS 01/05/21 [History] Omeprazole 20 mg PO HS 01/05/21 [History] Vitamin B-12 250mcg 250 mcg PO Q12H 01/05/21 [History] Follow up Appointment(s)/Referral(s): Filipe Florentino DO [Primary Care Provider] - 1 Week (After discharge from subacute rehab. Will need referral for Neurology appointment 1-2 weeks) Discharge Disposition: TRANSFER TO SNF/ECF
--- NOTE | 2021-01-09 14:29 | CDI ---
Documentation Clarification Form Date: 01/09/2021 02:18:50 PM From: Dayanara TangJAYSHREE cha, CCDS Admit Date: 01/07/2021 08:55:00 AM Patient Name: Adilson Whitfield Visit Number: [id number] Discharge Date: 01/09/2021 01:55:00 PM ATTENTION: The Clinical Documentation Specialists (CDI) and [facility] Coding Staff appreciate your assistance in clarifying documentation. Please respond to the clarification below the line at the bottom and electronically sign. The CDI & [facility] Coding staff will review the response and follow-up if needed. Please note: Queries are made part of the Legal Health Record. If you have any questions, please contact the author of this message via ITS. Dr. Deneen Bell: Per the 01/09 Discharge Summary: Mild confusion, rule out CVA is documented. Additional clarification is requested regarding the diagnosis of CVA. History/Risk Factors per the 01/06 H/P: BPH, Recent admit 12/08 for recurrent falls with impaired balance and chronic low back pain secondary to DDD L4-5 and mild canal stenosis greater on right, BPH. Former smoker. Family history of CVA, CAD and COPD. Clinical Indicators: Presented to the ED on 01/05 via EMS with Nausea, vomiting and diarrhea. Recently diagnosed with UTI and has been on antibiotics x10 days. ED Clinical Impression: Dehydration, Diarrhea and Hypotensive Episode 01/06 Neurology Consult: Patient had confusion for a few months. Rule out underlying cognitive impairment/dementia. Low Vit B12 can cause confusion. Recurrent falls with Lumbosacral spondylosis. Recent diarrhea due to antibiotic use. Plan: I don't feel he has a stroke, MRI and EEG are not warranted as Inpatient. 01/05 VS: T 98.4, P 87, R 16, BP 97/61, PO 94 RA 01/05 LAB: WBC 13.6, Neut 10.7, Na 135, K 5.3, CO2 21, Gluc 111, Alk Phos 36 01/05 C Diff negative 01/06 CT Brain: No acute intracranial hemorrhage or midline shift. Mild - moderate diffuse age-related atrophy & moderate chronic small vessel ischemic change noted. Treatment: Neurology consult, Heart Healthy diet, Full Code, IV fluid Na Cl 1,000 mls @ 999 mls/hr q1H, IM Bentyl, IV Protonix. Can you please clarify if the a CVA has been ruled in or ruled out? [ ] CVA ruled in, please specify type/location if known. [X ] CVA ruled out [ ] Other, please specify: [ ] Unable to determine (Template Last Revised: June 2020) MTDD
== END 2021-01-09 13:55 | DRG 395 ==
LOC: EC 20:35 → 6NMEDSUR 22:59 → OBSVTOIN 01-07 08:55
PROVIDERS: ADMIT Internal Medicine; ATTEND Internal Medicine
DX: K52.1 Toxic gastroenteritis and colitis (principal); T36.95XA Adverse effect of unspecified systemic antibiotic, initial encounter; E86.0 Dehydration; M47.817 Spondylosis without myelopathy or radiculopathy, lumbosacral region; M48.061 Spinal stenosis, lumbar region without neurogenic claudication; N40.0 Benign prostatic hyperplasia without lower urinary tract symptoms; R29.6 Repeated falls; Z91.81 History of falling; I95.9 Hypotension, unspecified; Z20.822 Contact with and (suspected) exposure to COVID-19; Z79.1 Long term (current) use of non-steroidal anti-inflammatories (NSAID); Z79.899 Other long term (current) drug therapy; Z82.49 Family history of ischemic heart disease and other diseases of the circulatory system; Z82.5 Family history of asthma and other chronic lower respiratory diseases; Z87.440 Personal history of urinary (tract) infections; Z87.891 Personal history of nicotine dependence; Z90.89 Acquired absence of other organs; Z98.890 Other specified postprocedural states; R26.9 Unspecified abnormalities of gait and mobility; G89.29 Other chronic pain
CPT/HCPCS: 36415; 70450; 80053; 81003; 82746; 83036; 85025; 85027; 87324; 87635; 96361; 96372; 96374; 99285

== ENCOUNTER 2021-03-07 13:05 | Observation (INO) | payer MEDICARE, OTHER ==
[2021-03-07] MEDS ORDERED: SODIUM CHLORIDE 0.9% 500 ML 500 ML IV ONE (13:54)
--- NOTE | 2021-03-07 14:00 | ED ---
General Adult HPI - General Chief complaint: Weakness Stated complaint: altered mental status Time Seen by Provider: 03/07/21 13:25 Source: patient, family, RN notes reviewed, old records reviewed Mode of arrival: EMS Limitations: no limitations - History of Present Illness Initial comments: This is a 75-year-old male who presents emergency Department from a correction. Staff there noted that the patient was altered and so they called for an abscess. According to staff the patient was under the bed looking to Paxil things away when in fact there is nothing under his bed. Patient also claimed there was things on his bed and there was nothing at all on the patient's back. Patient had multiple falls no signs of any injury according to staff. Patient himself is not very good historian. There is no history of any fever chills no history of any nausea vomiting or diarrhea there's no history of any shortness of breath. - Related Data Home Medications Medication Instructions Recorded Confirmed Ergocalciferol [Vitamin D2 (1250 1,250 mcg PO WE 12/08/20 01/05/21 Mcg = 27549 Iu)] Meloxicam [Mobic] 15 mg PO DAILY 12/08/20 01/05/21 Melatonin 9 mg PO HS 01/05/21 01/05/21 Omeprazole 20 mg PO HS 01/05/21 01/05/21 Vitamin B-12 250mcg 250 mcg PO Q12H 01/05/21 01/05/21 Previous Rx's Medication Instructions Recorded Tamsulosin [Flomax] 0.8 mg PO DAILY #60 cap 12/13/20 Allergies Allergy/AdvReac Type Severity Reaction Status Date / Time ether AdvReac Confusion Verified 03/07/21 13:26 Review of Systems ROS Statement: Those systems with pertinent positive or pertinent negative responses have been documented in the HPI. ROS Other: All systems not noted in ROS Statement are negative. Past Medical History Past Medical History: Prostate Disorder Additional Past Medical History / Comment(s): Left Achilles tendon rupture 6-7 years ago. bph, spinal stenosis, chronic back pain. History of Any Multi-Drug Resistant Organisms: None Reported Past Surgical History: Hernia Repair, Tonsillectomy Additional Past Surgical History / Comment(s): left forearm compound fracture surgical alignment and casting Past Anesthesia/Blood Transfusion Reactions: Postoperative Nausea & Vomiting (PONV) Past Psychological History: No Psychological Hx Reported Smoking Status: Former smoker Past Alcohol Use History: None Reported Past Drug Use History: None Reported - Past Family History Mother Family Medical History: No Reported History, Coronary Artery Disease (CAD) Father Family Medical History: No Reported History General Exam - General Exam Comments Initial Comments: GENERAL: Patient is well-developed and well-nourished. Patient is nontoxic and well- hydrated and is in no acute distress. ENT: Neck is soft and supple. No significant lymphadenopathy is noted. Oropharynx is clear. Moist mucous membranes. Neck has full range of motion without eliciting any pain. EYES: The sclera were anicteric and conjunctiva were pink and moist. Extraocular movements were intact and pupils were equal round and reactive to light. Eyelids were unremarkable. PULMONARY: Unlabored respirations. Good breath sounds bilaterally. No audible rales rhonchi or wheezing was noted. CARDIOVASCULAR: There is a regular rate and rhythm without any murmurs gallops or rubs. ABDOMEN: Soft and nontender with normal bowel sounds. SKIN: Skin is clear with no lesions or rashes and otherwise unremarkable. NEUROLOGIC: Patient is alert and oriented 2. Cranial nerves II through XII are grossly intact. Motor and sensory are also intact. Normal speech, volume and content. Symmetrical smile. MUSCULOSKELETAL: Normal extremities with adequate strength and full range of motion. LYMPHATICS: No significant lymphadenopathy is noted PSYCHIATRIC: Unable to assess secondary to his altered mental status Limitations: no limitations Course Vital Signs 03/07/21 13:21 Temperature 98.2 F Pulse Rate 66 Respiratory 16 Rate Blood Pressure 117/69 O2 Sat by Pulse 94 L Oximetry Medical Decision Making - Medical Decision Making CT of the brain showed no acute abnormality Chest x-ray showed no acute abnormality. Patient continues to be altered. I spoke with significant hospital stay admit the patient admitted the patient wrote admitting or stairs EKG shows sinus bradycardia 54 bpm ME interval is 202 QRS is 92 QT interval is 4:30 QTC is 47. Patient's EKG shows no ST segment elevation or depression. - Lab Data Result diagrams: 03/07/21 14:11 03/07/21 14:11 Lab Results 03/07/21 03/07/21 03/07/21 Range/Units 14:11 14:11 14:11 WBC 9.9 (3.8-10.6) k/uL RBC 4.31 (4.30-5.90) m/uL Hgb 13.9 (13.0-17.5) gm/dL Hct 39.1 (39.0-53.0) % MCV 90.7 D (80.0-100.0) fL MCH 32.3 (25.0-35.0) pg MCHC 35.6 (31.0-37.0) g/dL RDW 13.3 (11.5-15.5) % Plt Count 277 (150-450) k/uL MPV 7.2 Neutrophils % 75 % Lymphocytes % 14 % Monocytes % 7 % Eosinophils % 1 % Basophils % 0 % Neutrophils # 7.4 (1.3-7.7) k/uL Lymphocytes # 1.4 (1.0-4.8) k/uL Monocytes # 0.7 (0-1.0) k/uL Eosinophils # 0.1 (0-0.7) k/uL Basophils # 0.0 (0-0.2) k/uL PT 10.2 (9.0-12.0) sec INR 0.9 (<1.2) APTT 23.3 (22.0-30.0) sec Sodium (137-145) mmol/L Potassium (3.5-5.1) mmol/L Chloride (98-107) mmol/L Carbon Dioxide (22-30) mmol/L Anion Gap mmol/L BUN (9-20) mg/dL Creatinine (0.66-1.25) mg/dL Est GFR (CKD-EPI)AfAm (>60 ml/min/1.73 sqM) Est GFR (CKD-EPI)NonAf (>60 ml/min/1.73 sqM) Glucose (74-99) mg/dL Calcium (8.4-10.2) mg/dL Total Bilirubin (0.2-1.3) mg/dL AST (17-59) U/L ALT (4-49) U/L Alkaline Phosphatase (38-126) U/L Troponin I (0.000-0.034) ng/mL Total Protein (6.3-8.2) g/dL Albumin (3.5-5.0) g/dL Urine Color Yellow Urine Appearance Clear (Clear) Urine pH 5.5 (5.0-8.0) Ur Specific [place] 1.025 (1.001-1.035) Urine Protein Negative (Negative) Urine Glucose (UA) Negative (Negative) Urine Ketones Negative (Negative) Urine Blood Negative (Negative) Urine Nitrite Negative (Negative) Urine Bilirubin Negative (Negative) Urine Urobilinogen <2.0 (<2.0) mg/dL Ur Leukocyte Esterase Small H (Negative) Urine RBC 1 (0-5) /hpf Urine WBC 9 H (0-5) /hpf Ur Squamous Epith Cells <1 (0-4) /hpf Urine Mucus Rare H (None) /hpf Urine Opiates Screen Not Detected (NotDetected) Ur Oxycodone Screen Not Detected (NotDetected) Urine Methadone Screen Not Detected (NotDetected) Ur Propoxyphene Screen Not Detected (NotDetected) Ur Barbiturates Screen Not Detected (NotDetected) U Tricyclic Antidepress Not Detected (NotDetected) Ur Phencyclidine Scrn Not Detected (NotDetected) Ur Amphetamines Screen Not Detected (NotDetected) U Methamphetamines Scrn Not Detected (NotDetected) U Benzodiazepines Scrn Not Detected (NotDetected) Urine Cocaine Screen Not Detected (NotDetected) U Marijuana (THC) Screen Not Detected (NotDetected) 03/07/21 03/07/21 Range/Units 14:11 14:11 WBC (3.8-10.6) k/uL RBC (4.30-5.90) m/uL Hgb (13.0-17.5) gm/dL Hct (39.0-53.0) % MCV (80.0-100.0) fL MCH (25.0-35.0) pg MCHC (31.0-37.0) g/dL RDW (11.5-15.5) % Plt Count (150-450) k/uL MPV Neutrophils % % Lymphocytes % % Monocytes % % Eosinophils % % Basophils % % Neutrophils # (1.3-7.7) k/uL Lymphocytes # (1.0-4.8) k/uL Monocytes # (0-1.0) k/uL Eosinophils # (0-0.7) k/uL Basophils # (0-0.2) k/uL PT (9.0-12.0) sec INR (<1.2) APTT (22.0-30.0) sec Sodium 133 L (137-145) mmol/L Potassium 4.0 (3.5-5.1) mmol/L Chloride 103 (98-107) mmol/L Carbon Dioxide 25 (22-30) mmol/L Anion Gap 5 mmol/L BUN 22 H (9-20) mg/dL Creatinine 0.71 (0.66-1.25) mg/dL Est GFR (CKD-EPI)AfAm >90 (>60 ml/min/1.73 sqM) Est GFR (CKD-EPI)NonAf >90 (>60 ml/min/1.73 sqM) Glucose 98 (74-99) mg/dL Calcium 9.2 (8.4-10.2) mg/dL Total Bilirubin 1.4 H (0.2-1.3) mg/dL AST 61 H (17-59) U/L ALT 28 (4-49) U/L Alkaline Phosphatase 64 (38-126) U/L Troponin I <0.012 (0.000-0.034) ng/mL Total Protein 6.5 (6.3-8.2) g/dL Albumin 3.7 (3.5-5.0) g/dL Urine Color Urine Appearance (Clear) Urine pH (5.0-8.0) Ur Specific [place] (1.001-1.035) Urine Protein (Negative) Urine Glucose (UA) (Negative) Urine Ketones (Negative) Urine Blood (Negative) Urine Nitrite (Negative) Urine Bilirubin (Negative) Urine Urobilinogen (<2.0) mg/dL Ur Leukocyte Esterase (Negative) Urine RBC (0-5) /hpf Urine WBC (0-5) /hpf Ur Squamous Epith Cells (0-4) /hpf Urine Mucus (None) /hpf Urine Opiates Screen (NotDetected) Ur Oxycodone Screen (NotDetected) Urine Methadone Screen (NotDetected) Ur Propoxyphene Screen (NotDetected) Ur Barbiturates Screen (NotDetected) U Tricyclic Antidepress (NotDetected) Ur Phencyclidine Scrn (NotDetected) Ur Amphetamines Screen (NotDetected) U Methamphetamines Scrn (NotDetected) U Benzodiazepines Scrn (NotDetected) Urine Cocaine Screen (NotDetected) U Marijuana (THC) Screen (NotDetected) Disposition Clinical Impression: Altered mental status Disposition: ADMITTED IP TO THIS HOSP Referrals: None,Stated [Primary Care Provider] - 1-2 days Time of Disposition: 15:02
[2021-03-07 14:34] LABS: Basophils % (A) 0 %; Eosinophils # (A) 0.1 k/uL (0-0.7); Eosinophils % (A) 1 %; HCT 39.1 % (39.0-53.0); HGB 13.9 gm/dL (13.0-17.5); Lymphocytes # (A) 1.4 k/uL (1.0-4.8); Lymphocytes % (A) 14 %; MCH 32.3 pg (25.0-35.0); MCHC 35.6 g/dL (31.0-37.0); Mean Platelet Volume 7.2; Monocytes # (A) 0.7 k/uL (0-1.0); Monocytes % (A) 7 %; Neutrophils # (A) 7.4 k/uL (1.3-7.7); Neutrophils % (A) 75 %; Platelet Count 277 k/uL (150-450); RBC 4.31 m/uL (4.30-5.90); RDW 13.3 % (11.5-15.5); WBC 9.9 k/uL (3.8-10.6)
[2021-03-07 14:39] LABS: INR 0.9 (<1.2); Partial Thromboplastin Time 23.3 sec (22.0-30.0); Prothrombin Time 10.2 sec (9.0-12.0)
[2021-03-07 14:41] LABS: ALT 28 U/L (4-49); AST 61 U/L (17-59); African American GFR (CKD) >90 (>60 ml/min/1.73 sqM); Albumin 3.7 g/dL (3.5-5.0); Alkaline Phosphatase 64 U/L (38-126); Anion Gap 5 mmol/L; Blood Urea Nitrogen 22 mg/dL (9-20); Calcium 9.2 mg/dL (8.4-10.2); Carbon Dioxide 25 mmol/L (22-30); Chloride 103 mmol/L (98-107); Glucose 98 mg/dL (74-99); MCV 90.7 fL (80.0-100.0); Non-African American GFR(CKD) >90 (>60 ml/min/1.73 sqM); Sodium 133 mmol/L (137-145); Total Bilirubin 1.4 mg/dL (0.2-1.3); Total Protein 6.5 g/dL (6.3-8.2)
--- NOTE | 2021-03-07 14:47 | XR ---
EXAMINATION TYPE: XR chest 2V DATE OF EXAM: 03/07/2021 COMPARISON: 12/08/2020 INDICATION: Acute mental status changes TECHNIQUE: Frontal and lateral views of the chest are obtained. FINDINGS: The heart size is normal. The pulmonary vasculature is normal. The lungs are clear. IMPRESSION: 1. No acute pulmonary process.
--- NOTE | 2021-03-07 14:48 | CT ---
EXAMINATION TYPE: CT brain wo con DATE OF EXAM: 03/07/2021 COMPARISON: 01/06/2021 HISTORY: Altered mental status CT DLP: 1166.4 mGycm Automated exposure control for dose reduction was used. FINDINGS: There is no acute intracranial hemorrhage or midline shift identified. There is mild to moderate diff use ventricular and sulcal prominence consistent with diffuse age-related cerebral atrophy. There is moderate low- attenuation in the periventricular white matter consistent with chronic small vessel is chemic change. The globes are intact and the visualized sinuses are clear. The calvarium is intact. C alcified changes in the basal ganglia. IMPRESSION: DEGENERATIVE AND NONSPECIFIC WHITE MATTER CHANGES MOST TYPICAL REMOTE WHITE MATTER ISCHEMIA. IF THERE IS CONCERN FOR ACUTE ISCHEMIA CORRELATE WITH MRI CLINICALLY WARRANTED.
[2021-03-07 14:54] LABS: Amphetamine Screen,Urine Not Detected (NotDetected); Barbiturate Screen,Urine Not Detected (NotDetected); Benzodiazepines Screen,Urine Not Detected (NotDetected); Cocaine Screen,Urine Not Detected (NotDetected); Methadone Screen, Urine Not Detected (NotDetected); Opiate Screen,Urine Not Detected (NotDetected); Oxycodone Screen, Urine Not Detected (NotDetected); Phencyclidine Screen,Urine Not Detected (NotDetected); Tricyclic Antidepressant,Urine Not Detected (NotDetected); Urn Cannabinoid Scrn Not Detected (NotDetected)
[2021-03-07 14:55] LABS: Appearance,Urine Clear (Clear); Bilirubin,Urine Negative (Negative); Blood,Urine Negative (Negative); Color,Urine Yellow; Glucose,Urine (UA) Negative (Negative); Ketones,Urine Negative (Negative); Leukocyte Esterase,Urine Small (Negative); Mucus,Urine Rare /hpf; Nitrite,Urine Negative (Negative); PH, Urine 5.5 (5.0-8.0); Protein,Urine Negative (Negative); RBC,Urine 1 /hpf (0-5); Specific Gravity,Urine 1.025 (1.001-1.035); Squamous Epithelial Cell,Urine <1 /hpf (0-4); Urobilinogen,Urine <2.0 mg/dL (<2.0); WBC,Urine 9 /hpf (0-5)
[2021-03-07] MEDS ORDERED: SODIUM CHLORIDE 0.9% 1,000 ML IV ONE (15:03)
[2021-03-07 15:38] LABS: Glucose,Whole Blood 99 mg/dL (75-99)
--- NOTE | 2021-03-07 17:36 | P.CNNES ---
History of Present Illness Consult date: 03/07/21 Requesting physician: Jacinto Trujillo Reason for Consult: Altered mental status History of Present Illness: Patient is a 75-year-old right-handed male came to the hospital by ambulance today at 1:05 PM for altered mental status, visual hallucinations, seeing things that are not there. Patient currently living in a longterm since his discharge from the hospital on 01/09/2021. Patient's sister was present at the time of this interview, who also provided with a history. Patient has been seeing stuff in the bed. This morning the longterm staff found him on all 4 limbs on the ground, trying to find something underneath the bed that he described as, "stuff that he has to pack up". These visual hallucinations have started about couple days ago. It comes and goes. Just now, about half an hour ago in the ER, patient was seeing "Reyes twins sitting there". Patient was just started on Zoloft today, but these hallucinations have been going on before that. Patient also has developed significant gait imbalance, fall risk for the last 6 months. However he has been falling frequently in the last 2 months. He loses balance and goes down. He never passed out, does not feel dizzy. He is requiring 2 people assist for him to walk. Patient denies any tremors although his sister has noted some hand shaking while he was sitting in the waiting room, but not a lot. Patient and his sister believes that his memory is fine. Patient has no problem with control of urine. He does have some urgency related to prostate, but no incontinence. Patient denies any neck or back pain. Patient's sister has noticed that he is sleeping a lot. He was falling asleep in the waiting room. Blood test shows normal CBC, PT/PTT, sodium 133 potassium 4.0, normal renal functions. AST is mildly elevated 61, normal ALT is 28 troponin negative. UA shows small amount of leukocyte esterase. Urine drug screen negative. Coronavirus PCR negative. Patient's hemoglobin A1c 4.9 on 01/05/2021. B12 was 240 on 12/09/[address] head showed degenerative and nonspecific white matter changes, most typical of remote white matter ischemia. If there is concern for acute ischemia, correlate with MRI as clinically warranted. Chest x-ray showed no acute pulmonary process. EKG with sinus bradycardia, low volt age QRS. Septal infarct, age undetermined. Patient has no children. No history of tobacco or alcohol. Denies diabetes or hypertension. Patient was seen by Dr. Vivek Scott on 01/06/2021 for altered mental status, rule out CVA. Clinically there was no evidence of CVA at that time. Patient has a diagnosis of B12 deficiency, and dose of B12 was increased. Patient had an MRI of lumbar spine 12/10/2020, which revealed degenerative changes, most severe at L4 5, where there is reported mild canal stenosis and severe right and moderate left neural foraminal stenosis. Review of Systems As mentioned above in HPI. All other review of systems reviewed and unremarkable. Denies any headache problem with the vision, hoarseness, sore throat, dysphagia, no chest pain, abdominal pain, nausea vomiting diarrhea. Past Medical History Past Medical History: Prostate Disorder Additional Past Medical History / Comment(s): Left Achilles tendon rupture 6-7 years ago. bph, spinal stenosis, chronic back pain. History of Any Multi-Drug Resistant Organisms: None Reported Past Surgical History: Hernia Repair, Tonsillectomy Additional Past Surgical History / Comment(s): left forearm compound fracture surgical alignment and casting Past Anesthesia/Blood Transfusion Reactions: Postoperative Nausea & Vomiting (PONV) Past Psychological History: No Psychological Hx Reported Smoking Status: Former smoker Past Alcohol Use History: None Reported Past Drug Use History: None Reported - Past Family History Mother Family Medical History: No Reported History, Coronary Artery Disease (CAD) Father Family Medical History: No Reported History Medications and Allergies Home Medications Medication Instructions Recorded Confirmed Type Meloxicam [Mobic] 15 mg PO DAILY 12/08/20 03/07/21 History Melatonin 9 mg PO HS 01/05/21 03/07/21 History Omeprazole 20 mg PO HS 01/05/21 03/07/21 History Acetaminophen Tab [Tylenol] 650 mg PO Q4H PRN 03/07/21 03/07/21 History Cholecalciferol [Vitamin D3 (25 25 mcg PO DAILY 03/07/21 03/07/21 History Mcg = 1000 Iu)] Sertraline [Zoloft] 25 mg PO DAILY 03/07/21 03/07/21 History Tamsulosin [Flomax] 0.4 mg PO BID 03/07/21 03/07/21 History Allergies Allergy/AdvReac Type Severity Reaction Status Date / Time ether AdvReac Confusion Verified 03/07/21 15:15 Physical Examination - Vital Signs Vital Signs: Vital Signs Temp Pulse Resp BP Pulse Ox 03/07/21 13:21 98.2 F 66 16 117/69 94 L Intake and Output 03/07/21 03/07/21 03/07/21 06:59 14:59 22:59 Other: Weight 88.451 kg Patient is an elderly male, very pleasant, in no acute distress. Patient is alert awake oriented to time place and person. Speech and language functions are normal. Attention, concentration and fund of knowledge is adequate. Patient knows it is 03/07/2021 and that he is in [facility] in [facility] in [place]. He thinks he is in [facility]. He knows name of the current president. Patient is holding his lips tightly between his gums. On cranial examination, pupils are round and reacting to light, visual casey are full on confrontation, no neglect on double simultaneous stimulation. His extraocular muscles are intact with no nystagmus. Face is symmetric, tongue protrudes to the midline. Palatal elevation and sensation normal, hearing and shoulder shrug normal, facial sensation normal. On muscle strength testing, there is no pronator drift and the strength is normal in arms distally and proximally. In the lower limbs, patient's hip flexion is 5, knee extension 5, adduction 5, abduction 5 on the right, 5-on the left. Ankle dorsiflexion is 5 on the right, 5-left. Plantarflexion is slightly weak on the left related to previous Achilles tendon rupture. Deep tendon reflexes are 1+ to 2 in the arms and biceps and brachioradialis, 2 at the knees, 1 at the right ankle, 0 on the left and plantars are downgoing bilaterally. Sensory to touch is equal with no neglect. Cerebellar function showed no ataxia for [id number] testing. Tone is mild to moderately increased bilaterally with some cogwheeling. No definitive tremors at rest was noted. Patient does not appear typically bradykinetic, but slightly tremulous possible mildly delirious. Gait not checked.. On general examination, there is no carotid bruit or murmur, S1-S2 audible. A bdomen is soft nontender. Chest is clear. Peripheral pulses are present. No edema. Results - Laboratory Findings CBC and BMP: 03/07/21 14:11 03/07/21 14:11 Abnormal Lab Findings: Abnormal Labs 03/07/21 03/07/21 14:11 14:11 Sodium 133 L BUN 22 H Total Bilirubin 1.4 H AST 61 H Ur Leukocyte Esterase Small H Urine WBC 9 H Urine Mucus Rare H Assessment and Plan Assessment: * New onset visual hallucinations, probably due to mild delirium, exact cause remains uncertain. * Gait imbalance, and frequent falls. Patient does have mildly increased tone, therefore some neuro degenerative condition is a possibility. No definitive evidence of Parkinson's disease otherwise. ?MSA. No clinical evidence of myelopathy. * Mild hyponatremia. * Lumbars spondylosis without stenosis. Plan: * We will check B12, folate, MMA, B6. * MRI of the brain * Suggest EMG and nerve conductions of bilateral lower extremities as outpatient to rule out peripheral neuropathy. * PT and OT evaluate gait. * We will follow. Thank you for the consult.
[2021-03-08 02:25] LABS: Folate, Serum 7.7 ng/mL (4.40-31.00)
[2021-03-08] MEDS ORDERED: HALOPERIDOL LACTATE 5 MG/ML 1 ML VIAL IM PRN (12:05)
[2021-03-08] MEDS ORDERED: QUEtiapine 25 MG TAB PO PRN (12:05)
[2021-03-08] MEDS ORDERED: ACETAMINOPHEN TAB 325 MG TAB PO PRN (12:11)
--- NOTE | 2021-03-08 12:17 | P.HPIM ---
History of Present Illness Patient was admitted [id number] male was brought in by family members because of altered mental status and hallucinations and the patient apparently was trying to find stuff underneath the bed. When I evaluated the patient patient is alert oriented 3. Patient doesn't have any significant other provided abnormalities, workup for sepsis is negative. Patient has mildly low serum sodium of 133, with normal serum creatinine. Patient has mild left-sided facial droop which appears to be chronic CT of the head did not show any significant acute abnormality patient was evaluated by neurology, B12 was ordered essentially within normal limits for it is within normal limits MRI was recommended and is being obtained by neurology. Patient was having urinary retention all night for which she needed straight catheterization although patient is able to urinate patient appears to have benign prostatic hypertrophy on tamsulosin. REVIEW OF SYSTEMS: CONSTITUTIONAL: No fever, no malaise, no fatigue. HEENT: No recent visual problems or hearing problems. Denied any sore throat. CARDIOVASCULAR: No chest pain, orthopnea, PND, no palpitations, no syncope. PULMONARY: No shortness of breath, no cough, no hemoptysis. GASTROINTESTINAL: No diarrhea, no nausea, no vomiting, no abdominal pain. NEUROLOGICAL: No headaches, no weakness, no numbness. HEMATOLOGICAL: Denies any bleeding or petechiae. GENITOURINARY: Denies any burning micturition, frequency, or urgency. MUSCULOSKELETAL/RHEUMATOLOGICAL: Denies any joint pain, swelling, or any muscle pain. ENDOCRINE: Denies any polyuria or polydipsia. The rest of the 14-point review of systems is negative. PHYSICAL EXAMINATION: GENERAL: The patient is alert and oriented x3, not in any acute distress. Well developed, well nourished. HEENT: Pupils are round and equally reacting to light. EOMI. No scleral icterus. No conjunctival pallor. Normocephalic, atraumatic. No pharyngeal erythema. No thyromegaly. CARDIOVASCULAR: S1 and S2 present. No murmurs, rubs, or gallops. PULMONARY: Chest is clear to auscultation, no wheezing or crackles. ABDOMEN: Soft, nontender, nondistended, normoactive bowel sounds. No palpable organomegaly. MUSCULOSKELETAL: No joint swelling or deformity. EXTREMITIES: No cyanosis, clubbing, or pedal edema. NEUROLOGICAL: Gross neurological examination did not reveal any focal deficits. He lies deconditioning and weakness which is chronic SKIN: No rashes. Assessment and plan -Altered mental status: Most probably secondary to urinary retention no evidence of sepsis, clinically not a TIA or stroke. We'll continue with the neurology recommendations MRI will be obtained hospital day of discharge tomorrow. Patient lives at an detention and as per the patient patient uses wheelchair. Patient will be monitored with the every 6 hourly bladder scans for urinary retention. Patient is presently not on any medications that can cause confusion. -Benign prostatic hypertrophy patient will be resumed on tamsulosin -Depression for which patient is on Zoloft -Gastroesophageal reflux disease DVT prophylaxis: Lovenox Past Medical History Past Medical History: Prostate Disorder Additional Past Medical History / Comment(s): Left Achilles tendon rupture 6-7 years ago. bph, spinal stenosis, chronic back pain. History of Any Multi-Drug Resistant Organisms: None Reported Past Surgical History: Hernia Repair, Tonsillectomy Additional Past Surgical History / Comment(s): left forearm compound fracture surgical alignment and casting Past Anesthesia/Blood Transfusion Reactions: Postoperative Nausea & Vomiting (PONV) Past Psychological History: No Psychological Hx Reported Smoking Status: Former smoker Past Alcohol Use History: None Reported Past Drug Use History: None Reported - Past Family History Mother Family Medical History: No Reported History, Coronary Artery Disease (CAD) Father Family Medical History: No Reported History Medications and Allergies Home Medications Medication Instructions Recorded Confirmed Type Meloxicam [Mobic] 15 mg PO DAILY 12/08/20 03/07/21 History Melatonin 9 mg PO HS 01/05/21 03/07/21 History Omeprazole 20 mg PO HS 01/05/21 03/07/21 History Acetaminophen Tab [Tylenol] 650 mg PO Q4H PRN 03/07/21 03/07/21 History Cholecalciferol [Vitamin D3 (25 25 mcg PO DAILY 03/07/21 03/07/21 History Mcg = 1000 Iu)] Sertraline [Zoloft] 25 mg PO DAILY 03/07/21 03/07/21 History Tamsulosin [Flomax] 0.4 mg PO BID 03/07/21 03/07/21 History Allergies Allergy/AdvReac Type Severity Reaction Status Date / Time ether AdvReac Confusion Verified 03/07/21 15:15 Physical Exam Vitals: Vital Signs Temp Pulse Pulse Resp BP BP Pulse Ox 03/08/21 04:45 97.9 F 93 20 123/64 93 L 03/07/21 20:00 97.9 F 59 L 20 95/52 94 L 03/07/21 18:22 67 18 120/72 95 03/07/21 13:21 98.2 F 66 16 117/69 94 L Intake and Output 03/07/21 03/08/21 03/08/21 22:59 06:59 14:59 Intake Total 1000 Output Total 850 Balance 150 Intake: Intake, IV Titration 900 Amount Sodium Chloride 0.9% 1, 900 000 ml @ 75 mls/hr IV . [id number] ONE Rx#:[id number] Oral 100 Output: Urine 850 Other: Voiding Method Urinal Diaper # Voids 4 Weight 88.451 kg Results CBC & Chem 7: 03/07/21 14:11 03/07/21 14:11 Labs: Abnormal Lab Results - Last 24 Hours (Table) 03/07/21 03/07/21 Range/Units 14:11 14:11 Sodium 133 L (137-145) mmol/L BUN 22 H (9-20) mg/dL Total Bilirubin 1.4 H (0.2-1.3) mg/dL AST 61 H (17-59) U/L Ur Leukocyte Esterase Small H (Negative) Urine WBC 9 H (0-5) /hpf Urine Mucus Rare H (None) /hpf Thrombosis Risk Factor Assmnt - Choose All That Apply Each Risk Factor Represents 3 Points: Age 75 years or older Thrombosis Risk Factor Assessment Total Risk Factor Score: 3 Thrombosis Risk Factor Assessment Level: Moderate Risk
--- NOTE | 2021-03-08 12:17 | P.DS ---
Providers Date of admission: 03/07/21 15:04 Attending physician: Yohannes Preciado Consults: 03/07/21 15:03 Consult Physician Urgent Consulting Provider: Suzie Santiago Consult Reason/Comments: Altered mental status Do you want consulting provider notified?: Yes Primary care physician: Stated None Hospital Course: Patient was admitted [id number] male was brought in by family members because of altered mental status and hallucinations and the patient apparently was trying to find stuff underneath the bed. When I evaluated the patient patient is alert oriented 3. Patient doesn't have any significant other provided abnormalities, workup for sepsis is negative. Patient has mildly low serum sodium of 133, with normal serum creatinine. Patient has mild left-sided facial droop which appears to be chronic CT of the head did not show any significant acute abnormality patient was evaluated by neurology, B12 was ordered essentially within normal limits for it is within normal limits MRI was recommended and is being obtained by neurology. Patient was having urinary retention all night for which she needed straight catheterization although patient is able to urinate patient appears to have benign prostatic hypertrophy on tamsulosin. REVIEW OF SYSTEMS: CONSTITUTIONAL: No fever, no malaise, no fatigue. HEENT: No recent visual problems or hearing problems. Denied any sore throat. CARDIOVASCULAR: No chest pain, orthopnea, PND, no palpitations, no syncope. PULMONARY: No shortness of breath, no cough, no hemoptysis. GASTROINTESTINAL: No diarrhea, no nausea, no vomiting, no abdominal pain. NEUROLOGICAL: No headaches, no weakness, no numbness. HEMATOLOGICAL: Denies any bleeding or petechiae. GENITOURINARY: Denies any burning micturition, frequency, or urgency. MUSCULOSKELETAL/RHEUMATOLOGICAL: Denies any joint pain, swelling, or any muscle pain. ENDOCRINE: Denies any polyuria or polydipsia. The rest of the 14-point review of systems is negative. PHYSICAL EXAMINATION: GENERAL: The patient is alert and oriented x3, not in any acute distress. Well developed, well nourished. HEENT: Pupils are round and equally reacting to light. EOMI. No scleral icterus. No conjunctival pallor. Normocephalic, atraumatic. No pharyngeal erythema. No thyromegaly. CARDIOVASCULAR: S1 and S2 present. No murmurs, rubs, or gallops. PULMONARY: Chest is clear to auscultation, no wheezing or crackles. ABDOMEN: Soft, nontender, nondistended, normoactive bowel sounds. No palpable organomegaly. MUSCULOSKELETAL: No joint swelling or deformity. EXTREMITIES: No cyanosis, clubbing, or pedal edema. NEUROLOGICAL: Gross neurological examination did not reveal any focal deficits. He lies deconditioning and weakness which is chronic SKIN: No rashes. Assessment and plan -Altered mental status: Most probably secondary to urinary retention no evidence of sepsis, clinically not a TIA or stroke. We'll continue with the neurology recommendations MRI will be obtained hospital day of discharge tomorrow. Patient lives at an [facility] and as per the patient patient uses wheelchair. Patient will be monitored with the every 6 hourly bladder scans for urinary retention. Patient is presently not on any medications that can cause confusion. -Benign prostatic hypertrophy patient will be resumed on tamsulosin -Depression for which patient is on Zoloft -Gastroesophageal reflux disease DVT prophylaxis: Lovenox Plan - Discharge Summary Discharge Rx Participant: Yes New Discharge Prescriptions: No Action Meloxicam [Mobic] 15 mg PO DAILY Acetaminophen Tab [Tylenol] 650 mg PO Q4H PRN PRN Reason: Pain Tamsulosin [Flomax] 0.4 mg PO BID Omeprazole 20 mg PO HS Melatonin 9 mg PO HS Sertraline [Zoloft] 25 mg PO DAILY Cholecalciferol [Vitamin D3 (25 Mcg = 1000 Iu)] 25 mcg PO DAILY Discharge Medication List Meloxicam [Mobic] 15 mg PO DAILY 12/08/20 [History] Melatonin 9 mg PO HS 01/05/21 [History] Omeprazole 20 mg PO HS 01/05/21 [History] Acetaminophen Tab [Tylenol] 650 mg PO Q4H PRN 03/07/21 [History] Cholecalciferol [Vitamin D3 (25 Mcg = 1000 Iu)] 25 mcg PO DAILY 03/07/21 [History] Sertraline [Zoloft] 25 mg PO DAILY 03/07/21 [History] Tamsulosin [Flomax] 0.4 mg PO BID 03/07/21 [History] Follow up Appointment(s)/Referral(s): None,Stated [Primary Care Provider] - 1-2 days Activity/Diet/Wound Care/Special Instructions: [facility]
[2021-03-08] MEDS ORDERED: CYANOCOBALAMIN 1,000 MCG/ML 1 ML VIAL IM ONE (12:29)
--- NOTE | 2021-03-08 13:11 | P.PN ---
Subjective Progress Note Date: 03/08/21 Patient was seen for a follow-up. Patient continues to be delirious. Patient periodically shouting "help". I asked what he needs, states "it's a private matter". Patient then started taking off his clothes. When I asked why he is changing that clothes, patient states "Julio told me to change clothes", and his sister Julio is not present in the room. He continues to speak, with pinching his left side of the lip between the jaws. Objective - Vital Signs Vital signs: Vital Signs Temp 97.9 F 03/08/21 04:45 Pulse 93 03/08/21 04:45 Resp 20 03/08/21 04:45 BP 123/64 03/08/21 04:45 Pulse Ox 93 L 03/08/21 04:45 Intake & Output 03/07/21 03/08/21 03/08/21 18:59 06:59 18:59 Intake Total 1000 Output Total 850 Balance 150 Weight 88.451 kg 88.451 kg Intake: Intake, IV Titration 900 Amount Sodium Chloride 0.9% 1, 900 000 ml @ 75 mls/hr IV . [id number] ONE Rx#:[id number] Oral 100 Output: Urine 850 Other: Voiding Method Urinal Diaper # Voids 4 - Exam Patient continues to be delirious. As mentioned above. Speech patient speaks very fast, but no aphasia or dysarthria. Pupils are round and reacting visual casey are full and face is symmetric. Muscle strength is normal. Tone is moderately increased on the right, mildly on the left. Bulk of muscles normal. Patient is slightly tremulous. - Labs CBC & Chem 7: 03/07/21 14:11 03/07/21 14:11 Labs: Abnormal Lab Results - Last 24 Hours (Table) 03/07/21 03/07/21 Range/Units 14:11 14:11 Sodium 133 L (137-145) mmol/L BUN 22 H (9-20) mg/dL Total Bilirubin 1.4 H (0.2-1.3) mg/dL AST 61 H (17-59) U/L Ur Leukocyte Esterase Small H (Negative) Urine WBC 9 H (0-5) /hpf Urine Mucus Rare H (None) /hpf Assessment and Plan Assessment: * New onset visual hallucinations, probably due to mild delirium, exact cause remains uncertain. * Gait imbalance, and frequent falls. Patient does have mildly increased tone, therefore some neuro degenerative condition is a possibility. No definitive evidence of Parkinson's disease otherwise. ?MSA. No clinical evidence of myelopathy. * Urinary retention. * Mild hyponatremia. * Mild B12 and folate deficiency * Lumbars spondylosis without stenosis. Plan: * B12 408, folate borderline 7.70. Patient will be given one dose of B12 injection 1000 g IM. Start folic acid 1 mg daily. MMA, B6 still pending. * Patient's delirium is of unclear cause. Patient has urinary retention, but no evidence of UTI. Patient has Centeno's catheter. * Await MRI of the brain * For persistent altered mental status, will check EEG. * Suggest EMG and nerve conductions of bilateral lower extremities as outpatient to rule out peripheral neuropathy. * PT and OT evaluate gait. * Patient started on Seroquel 25 mg at bedtime as needed by IM. Consider psychiatry consult patient for persistent delirium/altered mental status. * We will follow. Discussed with Dr. Britton.
--- NOTE | 2021-03-08 14:12 | MR ---
EXAMINATION TYPE: MR brain wo con DATE OF EXAM: 03/08/2021 COMPARISON: CT brain yesterday and older study 01/06/2021. HISTORY: Frequent falls, hallucinations, AMS, unclear cause TECHNIQUE: Multiplanar, multisequence imaging of the brain and brainstem is performed without IV cont rast. FINDINGS: Exam is suboptimal due to patient motion. Diffusion weighted images demonstrate no evidence of a recent infarct or other diffusion abnormality. There is mild to moderate ventricular and sulcal prominence redemonstrated. Scattered [id number] areas of T2 hyperintensity throughout the white matter bilaterally present. Midline structures demonstrate normal morphology. The craniocervical junction appears within normal limits. Normal vascular flow voids are present. The visualized sinuses are clear and the globes are i ntact. IMPRESSION: No MRI evidence for recent infarct. [id number] diffuse cerebral atrophy and chronic small vessel ischemic changes redemonstrated.
[2021-03-08] MEDS: TAMSULOSIN 0.4 MG CAP.ER.24H PO SCH ×2 (14:52→20:05)
[2021-03-08] MEDS: FOLIC ACID 1 MG TAB PO SCH (14:52)
[2021-03-08] MEDS: SERTRALINE 25 MG TAB PO SCH (14:52)
[2021-03-08] MEDS: CHOLECALCIFEROL 25 MCG (1000 IU) TABLET PO SCH (14:52)
--- NOTE | 2021-03-08 16:03 | EEG ---
ELECTROENCEPHALOGRAM REPORT DATE OF SERVICE: 03/08/2021 PREAMBLE: This is a 75-year-old male with delirium, altered mental status. This study is performed to evaluate for any epileptiform activity or versus encephalopathy. EEG FINDINGS: This is a 21 channel digital EEG recorded with video component, utilizing 10/20 international system with referential and bipolar montages. The background consists of well-developed, but not very well regulated, mixed frequencies of low-voltage fast frequency beta, intermixed with some alpha and some theta activity. Background is not clearly reactive to eye opening or closing. Photic stimulation was not performed. Different stages of sleep were not seen. No focal or generalized epileptiform activity was seen. Hyperventilation was not done. IMPRESSION: This is a mildly abnormal EEG due to the slightly disorganized background, with low amplitude, fast frequency, poorly reactive background activity, which is suggestive of mild generalized cerebral dysfunction, which can be related to mild encephalopathy of metabolic degenerative conditions or medication use. No epileptiform activity was seen. MMODL / IJN: [id number] /
[2021-03-08] MEDS: THIAMINE 100 MG TAB PO SCH (17:59)
[2021-03-08] MEDS: SODIUM CHLORIDE 0.9% 1,000 ML IV SCH (17:59)
[2021-03-08] MEDS ORDERED: PANTOPRAZOLE 40 MG TABLET PO SCH (21:00)
[2021-03-09] MEDS: SODIUM CHLORIDE 0.9% 1,000 ML IV SCH (03:34)
[2021-03-09 07:20] VITALS: BP 122/69; PULSE 59; RESP 14; TEMP 97.4
[2021-03-09] MEDS: FOLIC ACID 1 MG TAB PO SCH (08:09)
[2021-03-09] MEDS: THIAMINE 100 MG TAB PO SCH (08:09)
[2021-03-09] MEDS: SERTRALINE 25 MG TAB PO SCH (08:09)
[2021-03-09] MEDS: TAMSULOSIN 0.4 MG CAP.ER.24H PO SCH (08:09)
[2021-03-09] MEDS: CHOLECALCIFEROL 25 MCG (1000 IU) TABLET PO SCH (08:09)
== END 2021-03-09 13:11 ==
LOC: EC 13:05 → 5NMEDONC 15:04
PROVIDERS: ADMIT Family Medicine; ATTEND Family Medicine
DX: R41.82 Altered mental status, unspecified (principal); R29.810 Facial weakness; N40.1 Benign prostatic hyperplasia with lower urinary tract symptoms; R33.9 Retention of urine, unspecified; F32.A Depression, unspecified; K21.9 Gastro-esophageal reflux disease without esophagitis; E87.1 Hypo-osmolality and hyponatremia; R26.89 Other abnormalities of gait and mobility; R44.1 Visual hallucinations; E53.8 Deficiency of other specified B group vitamins; M47.816 Spondylosis without myelopathy or radiculopathy, lumbar region; R44.3 Hallucinations, unspecified; G89.29 Other chronic pain; M54.9 Dorsalgia, unspecified; R00.1 Bradycardia, unspecified; R29.6 Repeated falls; Z20.822 Contact with and (suspected) exposure to COVID-19; Z87.891 Personal history of nicotine dependence; Z79.1 Long term (current) use of non-steroidal anti-inflammatories (NSAID); Z79.899 Other long term (current) drug therapy; Z91.048 Other nonmedicinal substance allergy status; Z91.81 History of falling
CPT/HCPCS: 96361 ×3; 96360; 96372; 99285; 36415; 95816; 93005; 97530; 97162; 97166; 84207; 83921; 84425; 80053; 82607; 82746; 84484; 85025; 85610; 85730; 81001; 87040; 80306; 87635; 71046; 70450; 70551; 51702; G0378 ×3; J3420

== ENCOUNTER → 2021-06-26 | Outpatient (CLI) | payer MEDICARE, OTHER ==
--- NOTE | 2021-06-26 15:49 | MR ---
MRI CERVICAL SPINE: CLINICAL HISTORY: Spondylosis. Bilateral leg weakness. TECHNIQUE: Multiplanar, multisequence imaging of the cervical spine is performed without IV contrast. COMPARISON: None. FINDINGS: Exam suboptimal as patient could not hold breath and swallowing causing motion. Sagittal im ages of the cervical spine show the craniocervical junction to appear within normal limits. The cerv ical and upper thoracic spinal cord is normal in course, caliber, and signal. Vertebral alignment is straightened. The vertebral body and intravertebral disk heights are normal. [id number] multi level anterior spurring is seen. The bone marrow signal intensity is within normal limits. Axial images are most degraded by patient motion. At C3-C4 level there is subtle spondylolisthesis wi th broad-based left paracentral spur disc complex. Facet degenerative changes are seen bilaterally at C4-C5 level likely causing mild bilateral neural foraminal narrowing. Remainder cervical levels felt likely within normal limits. IMPRESSION: Suboptimal study. 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
== END | disposition home or self-care (01) ==
LOC: RADMRIMAIN 11:26
PROVIDERS: ATTEND Psychiatry & Neurology Neurology
DX: M47.812 Spondylosis without myelopathy or radiculopathy, cervical region (principal); R29.898 Other symptoms and signs involving the musculoskeletal system
CPT/HCPCS: 72141